=== PATIENT | female | born 1960 | race African-American/Black ===

== ENCOUNTER 2017-10-21 12:16 | Inpatient (IN) | payer OTHER, MEDICAID ==
[~2017-10-21] VITALS: Ht 152.4 cm; Wt 36.3 kg
--- NOTE | 2017-10-21 12:18 | NUR ---
PATIENT TAKEN TO ER BED VIA EMS
--- NOTE | 2017-10-21 12:25 | NUR ---
PT BIBA FROM SCHOOL FOR GT DISLODGEMENT. NO BLEEDING OR DRAINNG NOTED, BALLOON STILL INFLATED NOTED EXTEROR TO ABDOMEN. TEACHER AT BEDSIDE. STATES SHE WAS GOING TO FEED PT FIBERSOURCE VIA GTUBE WHEN SHE NOTED IT WAS DISLODGED. PT NON VERBAL, SOCKS NOTED TO JULIA HANDS TO AVOID BITING. BOTH SOAKED IN WHAT APPEARS TO BE PATIENTS SALIVA. PT PULLING OWN TONGUE, PER TEACHER, THIS IS NORMAL BEHAVIOR FOR PT. PT WHEELCHAIR BOUND, INCONTNINENT. RESP EVEN AND UNLABORED, ON RA@99%. ABD SOFT, NT TO TOUCH. NO CRYING OR FACIAL BRIMACING NOTED, ONLY UNINTELLIGLE SOUNDS AT TIMES. MED HX: AUTISM MEDS:UNKNOWN
--- NOTE | 2017-10-21 13:04 | NUR ---
DR. PIZARRO BEDSIDE
[2017-10-21] MEDS ORDERED: MORPHINE SULFATE 2 MG/ML SYR IVP PRN (13:45)
[2017-10-21] MEDS ORDERED: MORPHINE SULFATE 4 MG/ML SYR IVP PRN (13:45)
[2017-10-21] MEDS: DEXT 5% /NACL 0.9% 1,000 ML IV SCH ×2 (13:45→23:45)
[2017-10-21] MEDS ORDERED: ONDANSETRON 4 MG/2 ML VIAL IVP PRN (13:45)
--- NOTE | 2017-10-21 15:08 | NUR ---
NO ACUTE CHNAGES IN CONDITON, VSS PRIVATE CAREGIVER AT BEDSIDE. IN NAD.
--- NOTE | 2017-10-21 15:30 | NUR ---
PATIENT LYING IN BED, MOVING AROUND. NO DISTRESS NOTED. FLACC 0. CONDITION UNCHANGED. SAFETY MEASURES IN PLACE, CALL LIGHT WITHIN REACH. WILL CONTINUE TO MONITOR . Addendum: 10/21/17 at 1951 by Ranulfo Peterson RN DISREGARD NOTE, WRONG TIME.
--- NOTE | 2017-10-21 15:33 | NUR ---
Patient will be admitted to care of DR . Admited to M/S. Will go to room. Belongings list completed. Report to [BLADE ADAMS.
[2017-10-21 15:45] VITALS: BP 119/64
--- NOTE | 2017-10-21 15:45 | NUR ---
PATIENT ARRIVED ON MST UNIT FROM ER VIA BED/GURNEY. PATIENT IN STABLE CONDITION. PATIENT IS BEDBOUND, UNABLE TO AMBULATE. PATIENT'S CAREGIVER IS WITH PATIENT AND IS PROVIDING INFORMATION REGARDING PATIENT'S MEDICAL HISTORY. ER NURSE UNABLE TO START AN IV ON PATIENT DUE TO PATIENT MOVING AROUND TOO MUCH. WILL NOTIFY . AAOX1, AGITATED MOOD. SKIN IS INTACT, SKIN COLOR APPROPRIATE TO ETHNICITY, WARM TO TOUCH. HAS CONTRACTURES ON B/L UE AND LE. ABDOMEN SOFT, NON-DISTENDED. GTUBE SITE STOMA ON LEFT UPPER ABD HAS SKIN GRANULOMA. LUNGS CTA ON ALL LOBES. SAFETY MEASURES IN PLACE, FALL PREVENTION IN PLACE, CALL LIGHT WITHIN REACH. WILL CONTINUE TO MONITOR.
--- NOTE | 2017-10-21 16:30 | NUR ---
PATIENT LYING IN BED, MOVING AROUND. NO DISTRESS NOTED. FLACC 0. CONDITION UNCHANGED. SAFETY MEASURES IN PLACE, CALL LIGHT WITHIN REACH. WILL CONTINUE TO MONITOR .
--- NOTE | 2017-10-21 17:30 | NUR ---
DR. EUGENE AT BEDSIDE REVIEWING PLAN OF CARE WITH PATIENT. WILL CONTINUE TO MONITOR.
[2017-10-21] MEDS ORDERED: LORazepam 2 MG/ML VIAL IM/IVP PRN (17:50)
--- NOTE | 2017-10-21 18:00 | NUR ---
ASSISTED SLOT SHIFT MANAGER IN CLEANING PATIENT AND REPOSITIONING PATIENT. NO DISTRESS NOTED. FLACC 0. SAFETY MEASURES IN PLACE, CALL LIGHT WITHIN REACH. WILL CONTINUE TO MONITOR.
--- NOTE | 2017-10-21 19:25 | NUR ---
GAVE REPORT TO CAD OPERATOR NURSE FOR CONTINUITY OF CARE. PATIENT IN STABLE CONDITION.
--- NOTE | 2017-10-21 19:26 | NUR ---
RECD. IN BED, AWAKE, A/OX1, APHASIC. RESPIRATION EVEN AND UNLABORED. NO IV LINE, WILL INSERT A NEW IV LINE. KEEP ON MOVING IN BED, GT SITE CLEAN AND DRY, NO NOTED DRAINAGE, APPEARS LIKE A CLOSED HOLE. WITH MITTENS ON, KEEP ON PUTTING HANDS INSIDE MOUTH. REORIENTED TO HOSPITAL SETTING. UNABLE TO COMPREHEND. BILATERAL LOWER EXTREMITIES CONTRACTED. SAFETY MEASURES ENFORCED. BED ON ALARM. NO APPEARANCE OF PAIN NOTED 0/10.
--- NOTE | 2017-10-21 19:30 | NUR ---
Patient's Plan of Care was discussed and reviewed with INSURANCE COORDINATOR: ALTAGRACIA
--- NOTE | 2017-10-21 20:30 | NUR ---
REQUESTED HAND TENNIS BALL COVERER TO HAVE ICU NURSE PUT A NEW IV LINE, CHARGE NURSE MADDISON TRIED BEFORE BEGINNING OF SHIFT BUT UNABLE TO FIND A LINE.
--- NOTE | 2017-10-21 22:00 | NUR ---
BED ALARM, TRYING TO GET OUT OF BED, NO DISTRESS NOTED.
[2017-10-21] MEDS ORDERED: LORazepam 2 MG/ML VIAL ONE (22:54)
--- NOTE | 2017-10-21 22:59 | NUR ---
WITH RESTLESSNESS, MEDICATED WITH ATIVAN 1 MG. IM ORDERED.
--- NOTE | 2017-10-21 23:55 | NUR ---
NO RESTLESSNESS NOTED, SLEEPING COMFORTABLY IN BED.
[2017-10-22] VITALS: BP 129/48
--- NOTE | 2017-10-22 | NUR ---
ICU NURSE LEAH TRIED TO INSERT IV AT THE ARMS AND FOOT BUT UNABLE TO FIND A LINE, PATIENT IS HARD STICK.
--- NOTE | 2017-10-22 02:00 | NUR ---
ER NURSE TRIED SIX TIMES BUT UNABLE TO GET AN IV LINE.
--- NOTE | 2017-10-22 02:45 | NUR ---
PAGED DR. George EUGENE TO INFORM UNABLE TO FIND AN IV LINE.
--- NOTE | 2017-10-22 07:10 | NUR ---
RECEIVED PATIENT REPORT AT BEDSIDE. PATIENT ASLEEP BUT AROUSABLE. NO S/S OF DISTRESS NOTED. PATIENT ON ROOM AIR. NO SOB. G-TUBE SITE OPEN TO AIR. NO DRAINAGE NOTED. NO IV LINE IN PLACE. BED LOWERED WITH CALL LIGHT WITHIN REACH. WILL CONTINUE TO MONITOR
--- NOTE | 2017-10-22 07:25 | NUR ---
CONDITION REMAIN STABLE, WILL ENDORSE TO ANGIE JOYCE FOR CONTINUITY OF CARE.
[2017-10-22 07:39] LABS: HEMATOCRIT 45.5 % (36-48); HEMOGLOBIN 14.9 g/dL (12.0-16.0); MEAN CORPUSCULAR HEMOGLOBIN 31 pg (27-31); MEAN CORPUSCULAR HGB CONC 33 g/dL (33-37); MEAN CORPUSCULAR VOLUME 94 fL (80-94); PLATELET COUNT (AUTO) 160 K/uL (140-450); RED BLOOD CELL COUNT(AUTO) 4.83 MIL/uL (4.20-5.40); RED CELL DISTRIBUTION WIDTH 13.2 % (11.6-13.7); WHITE BLOOD COUNT (AUTO) 4.6 K/uL (4.8-10.8)
[2017-10-22 08:00] VITALS: BP 108/41
--- NOTE | 2017-10-22 08:30 | NUR ---
MADE DR EUGENE AWARE OF PATIENT'S HEART RATE. PATIENT NO S/S OF DISTRESS NOTED. PATIENT IS AROUSABLE. ORDERS RECEIVED. WILL CONTINUE TO MONITOR
[2017-10-22 08:54] LABS: ANION GAP 13.3 (8-16); CARBON DIOXIDE 29.4 mmol/L (21-32); CREATININE 0.7 mg/dL (0.6-1.3); POTASSIUM 4.7 mmol/L (3.5-5.1)
--- NOTE | 2017-10-22 09:00 | NUR ---
PATIENT HAS BEEN SCREENED AND CATEGORIZED HIGH NUTRITION RISK. PATIENT WILL BE SEEN WITHIN 1-2 DAYS OF ADMISSION. 10/21/17-10/22/[address]
[2017-10-22] MEDS: DEXT 5% /NACL 0.9% 1,000 ML IV SCH (09:45)
[2017-10-22 10:07] LABS: EOSINOPHILS % (MANUAL) 5 % (0-4); LYMPHOCYTES % (MANUAL) 42 % (20-46); MONOCYTES % (MANUAL) 3 % (5-12)
[2017-10-22] MEDS ORDERED: MORPHINE SULFATE 2 MG/ML SYR IM SCH (10:41)
--- NOTE | 2017-10-22 11:00 | NUR ---
PEG PLACEMENT PERFORMED BY DR ASHBY AT BEDSIDE. PATIENT TOLERATED WELL
[2017-10-22 12:00] VITALS: BP 98/58
--- NOTE | 2017-10-22 14:10 | NUR ---
SPOKE TO MICHAEL, MUD GRINDER OF [facility] AND [facility] AND INFORMED HER THAT A DISCHARGE ORDER HAS BEEN PLACED ALREADY. PER MICHAEL, PT TO BE PICKED UP AT 1600
--- NOTE | 2017-10-22 15:40 | NUR ---
PATIENT DISCHARGED BACK TO BOARD AND CARE. DISCHARGE INSTRUCTIONS GIVEN. PATIENT'S CARE PROVIDER. VERBALIZED UNDERSTANDING. PATIENT LEFT WITH ALL HER DISCHARGE PAPERS AND BELONGINGS. PATIENT LEFT IN STABLE CONDITION
== END 2017-10-22 15:40 | DRG 394 ==
LOC: MED 12:16 → MTU 13:48
PROVIDERS: ADMIT Preventive Medicine Preventive Medicine/Occupational Environmental Medicine; ATTEND Preventive Medicine Preventive Medicine/Occupational Environmental Medicine
PROC: 0D20XUZ Change Feeding Device in Upper Intestinal Tract, External Approach (ICD-10-PCS; principal; 2017-10-22)
PROC: 0DJ08ZZ Inspection of Upper Intestinal Tract, Via Natural or Artificial Opening Endoscopic (ICD-10-PCS; 2017-10-22)
DX: Z43.1 Encounter for attention to gastrostomy (principal); F84.0 Autistic disorder; F72 Severe intellectual disabilities; R13.10 Dysphagia, unspecified; Z88.0 Allergy status to penicillin; Z88.8 Allergy status to other drugs, medicaments and biological substances
CPT/HCPCS: 36415; 71045; 74241; 80048; 85025; 87081; 93005; 99285; J2060; J2270; Q0092

== ENCOUNTER 2021-12-18 21:39 | Emergency (ER) | payer OTHER, MEDICAID ==
[~2021-12-18] VITALS: Ht 160 cm; Wt 45.4 kg
[~2021-12-18 21:39] MED LIST: ATRN INH; BISA-246 RC; CRAN450C GT; DOCU-299 GT; ESOM40EC GT; FERR75LI22 GT; LACT10CA GT; LACT10SO93 GT; MAGN400S60 GT; METO5SOL19 GT; MIRABULK GT; MULT15LI1 GT; ONDA4TAB GT; ROC1PM IV; TAMS0.4C96 GT; [UNRECOGNIZED DRUG - CODE] GT
--- NOTE | 2021-12-18 21:55 | NUR ---
DANIELLE SORIA VIA GURNEY TO BED 07.
[2021-12-18 21:57] VITALS: BP 118/68
--- NOTE | 2021-12-18 22:20 | NUR ---
Note undone in ED - 12/18/21 at 233 by NADEGE .61 YO F SANDEE FROM [facility]. PT HAS BEEN VOMITING X 1 WEEK. GCS NORMALLY 10 , NOW IT IS 5. PT IS RESTLESS AND CONTRACTED. PT UNABLE TO SPEAK. SKIN IS PINK/WARM/DRY AND INTACT PT UNABE TO AMBULATE; LUNGS CLEAR BL; HR EVEN AND REGULAR; PATIENT POSITIONED FOR COMFORT; HOB ELEVATED; BEDRAILS UP X2 WITH SEIZURE PADS ; BED DOWN. ER MADE AWARE OF PT STATUS. Addendum: 12/18/21 at 2333 by NADEGE Amendment undone in [facility] - 12/18/21 at 233 by NADEGE .61 YO F SANDEE FROM [facility]. PT HAS BEEN VOMITING X 1 WEEK. GCS NORMALLY 10 , NOW IT IS 5. PT IS RESTLESS AND CONTRACTED. PT UNABLE TO SPEAK. SKIN IS PINK/WARM/DRY AND INTACT PT UNABE TO AMBULATE; LUNGS CLEAR BL; HR EVEN AND REGULAR; PATIENT POSITIONED FOR COMFORT; HOB ELEVATED; BEDRAILS UP X2 WITH SEIZURE PADS ; BED DOWN. ER MD MADE AWARE OF PT STATUS. PMH:SPASTIC QUAD, CP, INTELLECTUALLY DISABLED, INCONTINENT ALLERGIES:PENECILLINS , HEPARIN
--- NOTE | 2021-12-18 23:05 | NUR ---
NEW BRIEF AND ROBERTO CARE PERFORMED. SEIZUE PADS PUT ON TO PROTECT HER HEAD. PT IS CONTRACTED AND HARD TO MOVE.
[2021-12-18] MEDS ORDERED: ONDANSETRON 4 MG/2 ML VIAL IVP ONE (23:35)
[2021-12-18] MEDS ORDERED: NACL 0.9% 1,000 ML IV ONE (23:35)
[2021-12-19] MEDS ORDERED: LORazepam 2 MG/ML VIAL IM ONE
[2021-12-19 00:06] LABS: BASOPHILS % (AUTO) 0.4 % (0.0-2.0); EOSINOPHILS # (AUTO) 0.1 K/uL (0-0.4); EOSINOPHILS % (AUTO) 1.1 % (0.0-4.0); HEMATOCRIT 39.4 % (36-48); HEMOGLOBIN 12.9 g/dL (12.0-16.0); LYMPHOCYTES # (AUTO) 1.9 K/uL (2.5-16.5); LYMPHOCYTES % (AUTO) 28.9 % (20.5-51.1); MEAN CORPUSCULAR HEMOGLOBIN 29 pg (27-31); MEAN CORPUSCULAR HGB CONC 33 g/dL (33-37); MEAN CORPUSCULAR VOLUME 89.2 fL (80-94); MONOCYTES # (AUTO) 0.8 K/uL (0.8-1.0); MONOCYTES % (AUTO) 12.8 % (1.7-9.3); NEUTROPHILS # (AUTO) 3.7 K/uL (1.8-7.7); NEUTROPHILS % (AUTO) 56.8 % (42.2-75.2); PLATELET COUNT (AUTO) 201 K/uL (140-450); RED BLOOD CELL COUNT(AUTO) 4.41 MIL/uL (4.20-5.40); RED CELL DISTRIBUTION WIDTH 15.1 % (11.6-13.7); WHITE BLOOD COUNT (AUTO) 6.5 K/uL (4.8-10.8)
[2021-12-19 00:36] LABS: ALBUMIN 2.8 g/dL (3.4-5.0); ANION GAP 10.9 (8-16); CARBON DIOXIDE 31.6 mmol/L (21-32); CREATININE 0.9 mg/dL (0.6-1.3); POTASSIUM 3.5 mmol/L (3.5-5.1); TOTAL BILIRUBIN 0.3 mg/dL (0.0-1.0)
--- NOTE | 2021-12-19 01:04 | NUR ---
PT TAKEN TO CT VIA W/C. Addendum: 12/19/21 at 0104 by MEDEB PT TAKEN TO CT VIA
--- NOTE | 2021-12-19 01:14 | NUR ---
PT BROUGHT BACK FROM CT VIA [facility].
--- NOTE | 2021-12-19 01:30 | NUR ---
DANIELLE JHAVERI. URINE COLLECTED AND WALKED TO LAB GIVEN TO BOLA
--- NOTE | 2021-12-19 01:46 | NUR ---
PT TEMP DROPPPING . PROVIDED TWO EXTRA BLANKETS FOR WARMTH AND COMFORT
[2021-12-19 01:49] LABS: APPEARANCE,URINE CLEAR (CLEAR); BILIRUBIN,URINE 1+ (NEGATIVE); BLOOD, URINE 3+ (NEGATIVE); COLOR,URINE YELLOW (YELLOW); LEUKOCYTE ESTERASE ,URINE 3+ (NEGATIVE); NITRITE, URINE NEGATIVE (NEGATIVE); PH,URINE 8.5 (5.0-9.0); UGLUCOSE NEGATIVE (NEGATIVE)
[2021-12-19 01:55] LABS: RBC,URINE 0-5 /HPF (0-5); WBC,URINE TOO MANY TO COUNT /HPF (0-5)
[2021-12-19] MEDS ORDERED: SULFAMETH/TRIMETH DS 800/160MG 1 TAB GT ONE (02:05)
--- NOTE | 2021-12-19 03:09 | NUR ---
PT TRANSFER KNITTER CALLED TO CLARIFY WHERE G TUBE MED GOES. ASPIRATE AND FEEDINGS IN JEJEUNEM AND MEDS IN STOMACH
[2021-12-19] MEDS ORDERED: ONDANSETRON 4 MG/2 ML VIAL ONE (04:08)
[2021-12-19] MEDS ORDERED: NITROGLYCERIN 0.4 MG TAB SL ONE (04:10)
--- NOTE | 2021-12-19 04:35 | NUR ---
Patient appears to be resting comfortably in bed. Vital Signs within normal limits. Respirations even and unlabored.
[2021-12-19] MEDS ORDERED: LEVOFLOXACIN 750 MG/D5W PREMIX 150 ML IV ONE (05:00)
[2021-12-19] MEDS ORDERED: LEVO-315 PO (05:01)
[2021-12-19] MEDS ORDERED: ONDA-188 PO (05:01)
[2021-12-19] MEDS ORDERED: SULF-59 PO (05:01)
--- NOTE | 2021-12-19 07:20 | NUR ---
Report and continuation of care received from VERNA Espinoza.
--- NOTE | 2021-12-19 07:20 | NUR ---
Pt report given to ANGIE KELLEY. Transfer of care at this time.
--- NOTE | 2021-12-19 07:31 | NUR ---
Spoke with Vicki Calderon / caregiver @ who states she will contact [place] to schedule transportation pickup. No ETA provided at this time.
--- NOTE | 2021-12-19 08:48 | NUR ---
Patient resting in semi-fowlers position with seizure pads in place. IVF 0.9% NS running at 100mL/hr. No respiratory distress noted; pt non-verbal with eyes open tracking. VSS; RR even/unlabored. Bed locked in lowest position, side rails x 2.
--- NOTE | 2021-12-19 09:08 | NUR ---
Recontacted Vicki via telephone who states scheduled pickup time from [facility] is [phone]. Vicki will recontact with any updated earlier ETA.
--- NOTE | 2021-12-19 10:39 | NUR ---
Pt resting in semi-fowlers position laying on R side. Seizure pads in place. VSS. Respirations even/unlabored. Bed locked in lowest position, side rails x 2.
--- NOTE | 2021-12-19 10:42 | NUR ---
Contacted Vicki who states no new ETA provided by [facility] [employer]. ETA remains [phone].
--- NOTE | 2021-12-19 12:07 | NUR ---
Patient appears to be resting comfortably in bed with both eyes closed. Vital Signs within normal limits. Respirations even and unlabored. Bed locked in lowest position, side rails x 2.
--- NOTE | 2021-12-19 14:03 | NUR ---
Contacted [facility] who states no new ETA provided by [facility], states she will attempt to contact transportation and obtain an updated ETA.
--- NOTE | 2021-12-19 14:10 | NUR ---
[facility] at [facility]
--- NOTE | 2021-12-19 14:17 | NUR ---
IV removed, catheter intact and site benign. Applied folded 2x2 gauze and tape to stop bleeding.
--- NOTE | 2021-12-19 14:18 | NUR ---
Patient discharged with v/s stable. Written and verbal after care instructions given and explained, provided to transportation crew for staff. Patient non-verbal; Carried onto [facility] and transported to long-term. All questions addressed prior to discharge. ID band removed. Patient advised to follow up with PMD. Rx of Zofran, Levofloxacin, Bactrim Ds Tablet given. Pt caregiver educated on indication of medication including possible reaction and side effects. Opportunity to ask questions provided and answered.
[2021-12-19 14:19] VITALS: BP 140/81
== END 2021-12-19 14:18 ==
LOC: MED 21:39
DX: J69.8 Pneumonitis due to inhalation of other solids and liquids (principal); N39.0 Urinary tract infection, site not specified; R11.2 Nausea with vomiting, unspecified; R94.31 Abnormal electrocardiogram [ECG] [EKG]
CPT/HCPCS: 36415; 71250; 74176; 80053; 81001; 83690; 85025; 87086; 93005; 96361; 96365; 96372; 96375; 99285; J1956; J2060; J2405; J7030

== ENCOUNTER 2022-05-17 10:03 | Emergency (ER) | payer OTHER, MEDICAID ==
[~2022-05-17] VITALS: Ht 157.5 cm; Wt 45.4 kg
[~2022-05-17 10:03] MED LIST changes: +LEVO-315 PO; +ONDA-188 PO; +SULF-59 PO
--- NOTE | 2022-05-17 10:06 | NUR ---
PATIENT BIBA TO BED 11.
[2022-05-17 10:20] VITALS: BP 110/70
[2022-05-17] MEDS ORDERED: ONDANSETRON 4 MG/2 ML VIAL IVP ONE (10:25)
--- NOTE | 2022-05-17 10:30 | NUR ---
lab at bedside
--- NOTE | 2022-05-17 10:30 | NUR ---
62 y/o female biba from [facility] B&C for nv x last night. Per EMS facility nurse reported pt was "diaphoretic" and had "abdominal pain". Upon assessment pain not evident during abdominal assessment and palpation. Noted with green emesis on night gown and green colored stool. GT in place with abdominal binder, no residuals. Pt is nonverbal, a/o x0 is baseline, GSC 9. ALL: PCN, Heparin PMH: GT placement, Cerebral Palsy, Spastic Quadriplegia, Profound Intellectual Disability.
[2022-05-17 10:46] LABS: BASOPHILS % (AUTO) 0.3 % (0.0-2.0); EOSINOPHILS # (AUTO) 0.1 K/uL (0-0.4); EOSINOPHILS % (AUTO) 1.6 % (0.0-4.0); HEMATOCRIT 38.2 % (36-48); HEMOGLOBIN 12.4 g/dL (12.0-16.0); LYMPHOCYTES # (AUTO) 1.3 K/uL (2.5-16.5); LYMPHOCYTES % (AUTO) 14.5 % (20.5-51.1); MEAN CORPUSCULAR HEMOGLOBIN 30 pg (27-31); MEAN CORPUSCULAR HGB CONC 33 g/dL (33-37); MEAN CORPUSCULAR VOLUME 92.8 fL (80-94); MONOCYTES # (AUTO) 0.7 K/uL (0.8-1.0); MONOCYTES % (AUTO) 7.3 % (1.7-9.3); NEUTROPHILS # (AUTO) 6.8 K/uL (1.8-7.7); NEUTROPHILS % (AUTO) 76.3 % (42.2-75.2); PLATELET COUNT (AUTO) 321 K/uL (140-450); RED BLOOD CELL COUNT(AUTO) 4.11 MIL/uL (4.20-5.40); RED CELL DISTRIBUTION WIDTH 16.4 % (11.6-13.7); WHITE BLOOD COUNT (AUTO) 8.9 K/uL (4.8-10.8)
[2022-05-17 11:04] LABS: ALBUMIN 2.7 g/dL (3.4-5.0); ANION GAP 12.1 (8-16); CARBON DIOXIDE 28.6 mmol/L (21-32); CREATININE 0.8 mg/dL (0.6-1.3); POTASSIUM 3.7 mmol/L (3.5-5.1); TOTAL BILIRUBIN 0.3 mg/dL (0.0-1.0)
--- NOTE | 2022-05-17 11:23 | NUR ---
Dr Ponce at bedside for ultrasound guided IV, 20g to left AC established.
--- NOTE | 2022-05-17 14:43 | NUR ---
PT IN RESTING IN BED WITH EYES OPEN. NO VISIBLE DISTRESS OBSERVED, BREATHING PATTERN AND EFFORT NORMAL. BED IN LOW, BILATERAL SIDE RAILS UP.
[2022-05-17] MEDS ORDERED: NACL 0.9% 1,000 ML IV ONE (15:00)
[2022-05-17 15:24] LABS: BILIRUBIN,URINE NEGATIVE (NEGATIVE); BLOOD, URINE TRACE-I (NEGATIVE); COLOR,URINE YELLOW (YELLOW); LEUKOCYTE ESTERASE ,URINE 1+ (NEGATIVE); NITRITE, URINE NEGATIVE (NEGATIVE); UGLUCOSE NEGATIVE (NEGATIVE)
[2022-05-17 15:32] LABS: APPEARANCE,URINE HAZY (CLEAR)
[2022-05-17 15:38] LABS: RBC,URINE 0-5 /HPF (0-5); WBC,URINE 20-60 /HPF (0-5)
[2022-05-17 15:39] LABS: YEAST,URINE Few /HPF (None Seen)
--- NOTE | 2022-05-17 15:50 | NUR ---
PHONE CALL PLACED TO [facility], SPOKE WITH KINA, CHARGE NURSE, WHO WILL ARRANGE TRANSPORT. WILL CALL BACK WITH KIRSTIN. CONTACT # [phone]
[2022-05-17] MEDS ORDERED: cefTRIAXone 1,000 MG VIAL ONE (15:54)
[2022-05-17] MEDS ORDERED: NITR100C7 PO (16:05)
[2022-05-17] MEDS ORDERED: FLUC150T PO (16:28)
--- NOTE | 2022-05-17 17:11 | NUR ---
PHONE CALL PLACED TO ASIM AT [facility] AT [phone], INFORMING OF PT DISCHARGE. PER ASIM SHE IS UNABLE TO ARRANGE TRANSPORT.
--- NOTE | 2022-05-17 17:20 | NUR ---
PHONE CALL RECEIVED FROM ASIM AT [facility] WHO STATES PT REQUIRES "HIGHER LEVEL OF CARE AND CANNOT BE ACCEPTED BACK". ASIM REQUESTING PT BE DISCHARGED TO SNF AT THIS TIME. INFORMED ASIM PT IS MEDICALLY CLEARED AND IS READY FOR TRANSPORT BACK TO FACILITY. PER ASIM SHE WILL CONTACT SIGN POSTER AND FACILITY FUNERAL ARRANGER FOR FURTHER INSTRUCTIONS.
--- NOTE | 2022-05-17 17:57 | NUR ---
PHONE CALL RECEIVED FROM CONSTANTIN, SUPER[employer]OR [employer] AT [facility]. SHE WILL ARRANGE FOR TRANSPORT THROUGH [facility] AND CALL BACK WITH [facility]. CONTACT # FOR CONSTANTIN [phone]
--- NOTE | 2022-05-17 18:16 | NUR ---
CALL RECEIVED FROM MELANIE WITH [facility], ETA 19:30-20:30
--- NOTE | 2022-05-17 19:21 | NUR ---
Pt report given to ANGIE Tracy. Transfer of care at this time.
[2022-05-17 19:59] VITALS: BP 126/76
--- NOTE | 2022-05-17 20:06 | NUR ---
Patient discharged with v/s stable. Written and verbal after care instructions given and explained. Patient alert, oriented and verbalized understanding of instructions. Ambulance Transport with to retirement. All questions addressed prior to discharge. ID band removed. Patient advised to follow up with PMD. Rx of macrobid 100mg capsule given. Patient educated on indication of medication including possible reaction and side effects. Opportunity to ask questions provided and answered. vss.
== END 2022-05-17 20:06 | disposition home or self-care (01) ==
LOC: MED 10:03
DX: N39.0 Urinary tract infection, site not specified (principal); E86.0 Dehydration; Z88.0 Allergy status to penicillin; Z88.8 Allergy status to other drugs, medicaments and biological substances
CPT/HCPCS: 36415; 80053; 81001; 83690; 83735; 85025; 87086; 96361; 96365; 96375; 99285; J0696; J2405; J7030

== ENCOUNTER 2022-11-20 09:54 | Inpatient (IN) | payer OTHER, MEDICAID ==
[~2022-11-20] VITALS: Ht 165.1 cm; Wt 45.4 kg
[~2022-11-20 09:54] MED LIST changes: +FLUC150T PO; -LEVO-315 PO; +LEVO-481 PO; +NITR100C7 PO; +[UNRECOGNIZED DRUG - CODE] GT; -[UNRECOGNIZED DRUG - CODE] GT
--- NOTE | 2022-11-20 09:56 | NUR ---
BIBA TO BED 9
[2022-11-20 10:01] VITALS: BP 132/80
[2022-11-20] MEDS ORDERED: NACL 0.9% 2,000 ML IV SCH (10:25)
--- NOTE | 2022-11-20 10:30 | NUR ---
62/F BIBA FROM [facility] WEAK NOTICED BY STAFF TODAY AT 0700. EMS REPORTS PATIENT'S HEARTRATE WAS ELEVATED UPON ARRIVAL. PER EMS, PT AT BASELINE AAOX0 BUT APPEARS MORE LETHARGIC THAN USUAL. PT TACHY OF 130 AND AXILLARY TEMP OF 101.4 AT TRIAGE. ON ROOM AIR, SATTING 96%. ON RN MED SURG, ON GOWN. PMH: SEPSIS, CEREBRAL PALSY
[2022-11-20] MEDS ORDERED: FERR-20 GT (10:34)
[2022-11-20] MEDS ORDERED: ASCO500T95 GT (10:34)
[2022-11-20] MEDS ORDERED: FAMO-92 GT (10:34)
--- NOTE | 2022-11-20 10:42 | NUR ---
BLOOD DRAWN AND SENT TO LAB. EKG DONE AT BEDSIDE. XR TAKEN AT BEDSIDE
[2022-11-20 10:49] LABS: BASOPHILS # (AUTO) 0.1 K/uL (0.00-0.22); BASOPHILS % (AUTO) 0.8 % (0.0-2.0); EOSINOPHILS % (AUTO) 0.3 % (0.0-4.0); HEMATOCRIT 46.8 % (36-48); HEMOGLOBIN 14.8 g/dL (12.0-16.0); LYMPHOCYTES # (AUTO) 1.1 K/uL (2.5-16.5); LYMPHOCYTES % (AUTO) 9.6 % (20.5-51.1); MEAN CORPUSCULAR HEMOGLOBIN 31 pg (27-31); MEAN CORPUSCULAR HGB CONC 32 g/dL (33-37); MEAN CORPUSCULAR VOLUME 97.1 fL (80-94); MONOCYTES # (AUTO) 1.3 K/uL (0.8-1.0); MONOCYTES % (AUTO) 10.7 % (1.7-9.3); NEUTROPHILS # (AUTO) 9.3 K/uL (1.8-7.7); NEUTROPHILS % (AUTO) 78.6 % (42.2-75.2); PLATELET COUNT (AUTO) 298 K/uL (140-450); RED BLOOD CELL COUNT(AUTO) 4.82 MIL/uL (4.20-5.40); WHITE BLOOD COUNT (AUTO) 11.8 K/uL (4.8-10.8)
[2022-11-20] MEDS ORDERED: LEVOFLOXACIN 750 MG/D5W PREMIX 150 ML IV ONE (11:20)
--- NOTE | 2022-11-20 11:28 | NUR ---
URINE COLLECTED VIA STRAIGHT CATH WITHOUT COMPLICATION. URINE SENT TO LAB
[2022-11-20 11:40] LABS: ALBUMIN 3.1 g/dL (3.4-5.0); ANION GAP 17.7 (8-16); CARBON DIOXIDE 24.7 mmol/L (21-32); CREATININE 1.2 mg/dL (0.6-1.3); POTASSIUM 4.4 mmol/L (3.5-5.1); TOTAL BILIRUBIN 0.3 mg/dL (0.0-1.0)
[2022-11-20 12:22] LABS: APPEARANCE,URINE CLEAR (CLEAR); BILIRUBIN,URINE NEGATIVE (NEGATIVE); BLOOD, URINE TRACE-I (NEGATIVE); COLOR,URINE YELLOW (YELLOW); LEUKOCYTE ESTERASE ,URINE SMALL (NEGATIVE); NITRITE, URINE POSITIVE (NEGATIVE); PH,URINE 6.5 (5.0-9.0); UGLUCOSE NEGATIVE (NEGATIVE)
[2022-11-20] MEDS ORDERED: MAG SULF 2000 MG/WATER PREMIX 50 ML IV PRN (13:35)
[2022-11-20] MEDS ORDERED: NACL 0.9% 1,000 ML IV SCH (13:35)
[2022-11-20] MEDS ORDERED: MAGNESIUM HYDROXIDE 2400 MG/30 ML UDC GT PRN (13:35)
[2022-11-20] MEDS ORDERED: POTASSIUM CHLORIDE 20% 40 MEQ/15 ML UDC PO PRN (13:35)
[2022-11-20] MEDS ORDERED: IPRATROPIUM 0.02% 0.5 MG/2.5 ML NEBU INH PRN (13:35)
[2022-11-20] MEDS ORDERED: bisacodyL 10 MG SUPP RC PRN (13:35)
[2022-11-20] MEDS ORDERED: HYDROcodone/APAP 7.5/325 MG 1 TAB PO PRN (13:35)
[2022-11-20] MEDS ORDERED: ONDANSETRON 4 MG/2 ML VIAL IVP PRN (13:35)
[2022-11-20] MEDS ORDERED: ACETAMINOPHEN 650 MG GT SCH (13:35)
[2022-11-20] MEDS ORDERED: ONDANSETRON 4 MG ODT PO PRN (13:35)
[2022-11-20] MEDS ORDERED: ACETAMINOPHEN 325 MG TAB PO PRN (13:35)
[2022-11-20] MEDS ORDERED: ONDANSETRON 4 MG TAB GT SCH (13:35)
--- NOTE | 2022-11-20 14:25 | NUR ---
Patient will be admitted to care of JACQUELYN. Admited to TELE. Will go to room 122A. Belongings list completed. Report to TERRANCE ADAMS.
[2022-11-20 14:56] LABS: ANION GAP 13.6 (8-16); CARBON DIOXIDE 24.9 mmol/L (21-32); CREATININE 0.9 mg/dL (0.6-1.3); POTASSIUM 4.5 mmol/L (3.5-5.1)
[2022-11-20 15:14] LABS: CHOL/HDL RATIO 3.6 (1-4.5); FREE T4 (FREE THYROXINE) 0.98 ng/dL (0.76-1.46); PHOSPHORUS 2.6 mg/dL (2.5-4.9); THYROID STIMULATING HORMONE 1.29 uIU/mL (0.34-3.74)
[2022-11-20 15:26] LABS: PROTHROMBIN TIME 10.9 secs (10.8-13.4)
[2022-11-20 16:00] VITALS: BP 114/73
--- NOTE | 2022-11-20 16:02 | NUR ---
PATIENT HAS BEEN SCREENED AND CATEGORIZED HIGH NUTRITION RISK. PATIENT WILL BE SEEN WITHIN 1-2 DAYS OF ADMISSION. REVIEWED BY ILIANA GRIMES RD
[2022-11-20] MEDS: METOCLOPRAMIDE 10 MG/10 ML SYRP UDC GT SCH (16:37)
[2022-11-20 20:00] VITALS: BP 118/61
--- NOTE | 2022-11-20 20:07 | NUR ---
PATIENT AWAKE NON VERBAL ON ROOM AIR. NO S/S OF RESPIRATORY DISTRESS. RESPIRATION EVEN UNLABORED. TUBE FEEDING JEVITY 1.2 RUNNING 40 ML/HR TOLERATING WELL. NO RESIDUAL NOTED. PATIENT IS CONTRACTED TO BOTH UPPER AND LOWER EXTREMITIES. IV ACCESS ON THE RIGHT EJ 22 GAUGE SALINE LOCK. SAFETY PRECAUTIONS ARE IN PLACE. CALL LIGHT WITHIN REACH.
[2022-11-20] MEDS: DOCUSATE 100 MG/10 ML UDC PO SCH (20:08)
--- NOTE | 2022-11-20 20:08 | NUR ---
ADMINISTERED SCHEDULED DUE MEDICATIONS.
[2022-11-20] MEDS ORDERED: DOCUSATE SODIUM 100 MG GELCAP PO SCH (21:00)
[2022-11-20 22:26] LABS: ANION GAP 12.8 (8-16); CARBON DIOXIDE 27.2 mmol/L (21-32); CREATININE 0.9 mg/dL (0.6-1.3)
--- NOTE | 2022-11-20 22:29 | NUR ---
RECEIVED A CALL FROM LAB REPORTING CRITICAL LAB VALUE SODIUM 157. NOTIFIED DR. VALLADARES AT 3413 WITH NEW ORDERS NOTED, CARRIED OUT.
[2022-11-20] MEDS: NACL 0.45% 1,000 ML IV SCH (22:40)
[2022-11-21] VITALS: BP 114/65
[2022-11-21 04:00] VITALS: BP 111/68
--- NOTE | 2022-11-21 07:17 | NUR ---
BEDSIDE REPORT GIVEN TO DAY SHIFT NURSE PORFIRIO FOR CONTINUITY OF CARE.
[2022-11-21 07:22] LABS: BASOPHILS % (AUTO) 0.3 % (0.0-2.0); EOSINOPHILS # (AUTO) 0.1 K/uL (0-0.4); EOSINOPHILS % (AUTO) 0.9 % (0.0-4.0); HEMATOCRIT 36.7 % (36-48); HEMOGLOBIN 11.6 g/dL (12.0-16.0); LYMPHOCYTES # (AUTO) 1.6 K/uL (2.5-16.5); MEAN CORPUSCULAR HEMOGLOBIN 31 pg (27-31); MEAN CORPUSCULAR HGB CONC 32 g/dL (33-37); MONOCYTES # (AUTO) 0.7 K/uL (0.8-1.0); MONOCYTES % (AUTO) 8.6 % (1.7-9.3); NEUTROPHILS # (AUTO) 5.5 K/uL (1.8-7.7); NEUTROPHILS % (AUTO) 70.2 % (42.2-75.2); PLATELET COUNT (AUTO) 219 K/uL (140-450); RED BLOOD CELL COUNT(AUTO) 3.78 MIL/uL (4.20-5.40); RED CELL DISTRIBUTION WIDTH 16.1 % (11.6-13.7); WHITE BLOOD COUNT (AUTO) 7.8 K/uL (4.8-10.8)
--- NOTE | 2022-11-21 07:37 | NUR ---
11/21/2022 0737: RECEIVED REPORT FROM AUGUSTINA ADAMS. PT RESTING IN BED. NO GUARDING OR GRIMACING N. NO ACUTE DISTRESS NOTED AT THIS TIME. [id number].
[2022-11-21 08:00] VITALS: BP 110/67
[2022-11-21 08:05] LABS: ANION GAP 11.8 (8-16); CREATININE 0.7 mg/dL (0.6-1.3); POTASSIUM 3.8 mmol/L (3.5-5.1)
[2022-11-21 08:15] LABS: MAGNESIUM 1.9 mg/dL (1.8-2.4); PHOSPHORUS 3.2 mg/dL (2.5-4.9)
[2022-11-21] MEDS ORDERED: NON-FORMULARY ITEM (Famotidine* (Pepcid*) 40 MG) GT SCH (09:00)
[2022-11-21] MEDS: POLYETHYLENE GLYCOL 17 GM/PKT GT SCH (09:17)
[2022-11-21] MEDS: TAMSULOSIN 0.4 MG CAP GT SCH (09:17)
[2022-11-21] MEDS: LACTOBACILLUS RHAMNOSUS GG 1 EACH CAP GT SCH (09:17)
[2022-11-21] MEDS: DOCUSATE 100 MG/10 ML UDC PO SCH ×2 (09:19→20:21)
[2022-11-21] MEDS: ASCORBIC ACID 500 MG/5 ML ORASYR GT SCH (09:19)
[2022-11-21] MEDS: PANTOPRAZOLE 40 MG INJ VIAL IVP SCH (09:19)
[2022-11-21] MEDS: METOCLOPRAMIDE 10 MG/10 ML SYRP UDC GT SCH ×3 (09:19→17:00)
[2022-11-21] MEDS: FERROUS SULFATE 300 MG/5 ML UDC PO SCH (09:20)
[2022-11-21 12:00] VITALS: BP 111/71
--- NOTE | 2022-11-21 15:20 | NUR ---
DC PLANNING ASSESSMENT COMPLETE SEE ASSESSMENT FOR DETAILS CLEVE REPORTS TENTATIVE DC PLAN IS FOR PT TO RETURN TO [facility], ONCE MEDICALLY STABLE. Addendum: 11/21/22 at 1521 by Giorgio ZABALA Amended: Links added.
[2022-11-21] MEDS ORDERED: DEXTROSE 50% 50 ML SYR IVP PRN (15:30)
[2022-11-21 16:00] VITALS: BP 111/71
--- NOTE | 2022-11-21 16:26 | NUR ---
11/21/22 RD INITIAL ASSESSMENT COMPLETED PLEASE REFER TO NUTRITION ASSESSMENT UNDER CARE ACTIVITY FOR ESTIMATED NUTRITIONAL NEEDS. 1. RECOMMEND SWITCHING TF FORMULA TO GLUCERNA 1.2 D/T PT WITH HYPERGLYCEMIA @ GOAL RATE OF 60 ML/HR, FWF 250 ML Q4 PER MD - PROVIDES 1440 ML TOTAL VOLUME, 1728 KCAL, 86 GM PROTEIN AND 2159 ML FREE WATER DAILY MEETING 100% ESTIMATED KCAL AND PROTEIN NEEDS; ADEQUATE - START TF AT 2O ML/HR INCREASE BY 2O ML Q4H UNTIL GOAL IS REACHED TOLERATED 2. MONITOR GI SYMPTOMS, GASTRIC RESIDUALS AND NUTRITION RELATED LAB VALUES 3. CONSULT RD PRN 4. RD TO FOLLOW-UP 2-3 DAYS, HIGH RISK REVIEWED BY ILIANA GRIMES RD
[2022-11-21] MEDS: BLOOD GLUCOSE MONITORING 1 DEV DEV FS SCH ×2 (16:30→20:20)
[2022-11-21] MEDS: INSULIN LISPRO SLIDING SCALE 100 UNITS/ML VIAL SUBQ PRN (17:34)
[2022-11-21] MEDS: NACL 0.45% 1,000 ML IV SCH (18:40)
--- NOTE | 2022-11-21 19:25 | NUR ---
RECEIVED PATIENT SLEEPING ON ROOM AIR. NO S/S OF RESPIRATORY DISTRESS. BREATHING NORMAL WITH SYMMETRICAL RISE AND FALL OF THE CHEST. IVF 1/2 NS INFUSING AT 50 ML/HR IN THE LEFT EJ. TUBE FEEDING JEVITY 1.2 RUNNING 40 ML/HR TOLERATING WELL. NO RESIDUAL NOTED. INCREASED FEEDING TO 50 ML/HR. SAFETY MEASURES IN PLACE. BED WHEELS LOCKED. PATIENT IS CONTRACTED AND NON VERBAL.
[2022-11-21 20:00] VITALS: BP 107/64
--- NOTE | 2022-11-21 20:21 | NUR ---
DUE MEDICATION GIVEN
[2022-11-22] VITALS: BP 108/65
[2022-11-22 04:00] VITALS: BP 136/70
[2022-11-22] MEDS: BLOOD GLUCOSE MONITORING 1 DEV DEV FS SCH ×4 (06:39→20:15)
--- NOTE | 2022-11-22 06:39 | NUR ---
CHECKED BLOOD SUGAR WAS 172, HUMALOG INSULIN ADMINISTERED ORDERED PER SLIDING SCALE.
[2022-11-22] MEDS: INSULIN LISPRO SLIDING SCALE 100 UNITS/ML VIAL SUBQ PRN (06:40)
--- NOTE | 2022-11-22 07:27 | NUR ---
ENDORSED PATIENT TO AM SHIFT NURSE FOR CONTINUITY OF CARE.
--- NOTE | 2022-11-22 07:30 | NUR ---
RECEIVED PATIENT FROM FOOD SAFETY COORDINATOR NURSE FOR CONTINUITY OF CARE. PT IS AOX0. ON ROOM AIR. NO S/S OF RESPIRATORY DISTRESS. BREATHING NORMAL WITH SYMMETRICAL RISE AND FALL OF THE CHEST. IV 18G ON LEFT EJ. IVF 1/2 NS INFUSING AT 50 ML/HR. TUBE FEEDING JEVITY 1.2 RUNNING 50 ML/HR TOLERATING WELL. FLACC 0. PLAN OF CARE DISCUSSED. SAFETY MEASURES IN PLACE. BED WHEELS LOCKED. CALL LIGHT WITHIN REACH.
[2022-11-22 08:00] VITALS: BP 104/64
[2022-11-22] MEDS ORDERED: LEVOFLOXACIN 750 MG/D5W PREMIX 150 ML IV SCH ×2 (08:10→08:20)
[2022-11-22] MEDS: METOCLOPRAMIDE 10 MG/10 ML SYRP UDC GT SCH ×3 (08:54→16:45)
[2022-11-22] MEDS: PANTOPRAZOLE 40 MG INJ VIAL IVP SCH (08:54)
[2022-11-22] MEDS: POLYETHYLENE GLYCOL 17 GM/PKT GT SCH (08:54)
[2022-11-22] MEDS: FERROUS SULFATE 300 MG/5 ML UDC PO SCH (08:57)
[2022-11-22] MEDS: TAMSULOSIN 0.4 MG CAP GT SCH (08:57)
[2022-11-22] MEDS: LACTOBACILLUS RHAMNOSUS GG 1 EACH CAP GT SCH (08:57)
[2022-11-22] MEDS: ASCORBIC ACID 500 MG/5 ML ORASYR GT SCH (08:57)
[2022-11-22] MEDS: DOCUSATE 100 MG/10 ML UDC PO SCH ×2 (08:57→20:15)
--- NOTE | 2022-11-22 09:30 | NUR ---
ALL SCHEDULED MEDS GIVEN. PT IS STABLE. NO DISTRESS NOTED. WILL CONTINUE TO MONITOR.
[2022-11-22 12:00] VITALS: BP 99/62
--- NOTE | 2022-11-22 12:17 | NUR ---
BS CHECK WAS 82. DID NOT ADMINISTER INSULIN.
[2022-11-22] MEDS: NACL 0.45% 1,000 ML IV SCH (15:15)
[2022-11-22 16:00] VITALS: BP 120/57
--- NOTE | 2022-11-22 16:53 | NUR ---
BS CHECK WAS 109. DID NOT ADMINISTER 109
--- NOTE | 2022-11-22 19:18 | NUR ---
ENDORSED TO HOT WIRE GLASS TUBE CUTTER NURSE FOR CONTINUITY OF CARE. PT IS STABLE.
--- NOTE | 2022-11-22 19:19 | NUR ---
RECEIVED REPORT FROM MORNING SHIFT NURSE. PT IS AOX1, BEDBOUND AND BLIND. PT IS ON ROOM AIR AND ON G-TUBE RUNNING WITH GLUCERNA 1.2 RUNNING AT 60ML/HR WITH WATER FLUSH OF 250ML/HR EVERY 4 HRS. PT HAS IV ON LEFT WRIST GAUGE 22 RUNNING WITH .45 NS AT 50ML/HR. PT SKIN IS INTACT. ALL SAFETY MEASURES IMPLEMENTED. BED IN LOW POSITION, BED WHEELS ON LOCK AND CALL LIGHT WITHIN REACH.
[2022-11-22 20:00] VITALS: BP 105/54
--- NOTE | 2022-11-22 20:15 | NUR ---
SCHEDULED AND PRESCRIBED MEDICATION WAS GIVEN TO PT PER MD ORDER. PT BLOOD GLUCOSE IS 116. NO NEED FOR INSULIN COVERAGE. ALL SAFETY MEASURES IMPLEMENTED. BED IN LOW POSITION, BED WHEELS ON LOCK AND CALL LIGHT WITHIN REACH.
[2022-11-23] VITALS: BP 121/87
--- NOTE | 2022-11-23 | NUR ---
PT IS SLEEPING. CHEST RISE AND FALL SYMMETRICALLY NOTED. RESPIRATION IS EVEN AND UNLABORED. ALL SAFETY MEASURES IMPLEMENTED. BED IN LOW POSITION, BED WHEELS ON LOCK, BED IN LOW POSITION AND CALL LIGHT WITHIN REACH.
--- NOTE | 2022-11-23 02:00 | NUR ---
HANG NEW G-TUBE FEEDING, GLUCERNA 1.2 RUNNING AT 60ML/HR WITH WATER FLUSH OF 250ML/HR EVERY 4 HRS. ALL SAFETY MEASURES IMPLEMENTED. BED IN LOW POSITION, BED WHEELS ON LOCK, BED IN LOW POSITION AND CALL LIGHT WITHIN REACH.
--- NOTE | 2022-11-23 04:00 | NUR ---
MORNING CARE WAS DONE TO PT. CHANGED CHUCKS, LINENS AND GOWN. ALL SAFETY MEASURES IMPLEMENTED. BED IN LOW POSITION, BED WHEELS ON LOCK, BED IN LOW POSITION AND CALL LIGHT WITHIN REACH.
[2022-11-23 04:02] VITALS: BP 118/65
[2022-11-23] MEDS: BLOOD GLUCOSE MONITORING 1 DEV DEV FS SCH ×4 (06:31→20:09)
--- NOTE | 2022-11-23 06:31 | NUR ---
PT BLOOD GLUCOSE IS 121. NO INSULIN COVERAGE NEEDED.
--- NOTE | 2022-11-23 07:14 | NUR ---
PT IS STABLE. ENDORSED PT TO MORNING SHIFT NURSE FOR CONTINUITY OF CARE.
[2022-11-23 08:00] VITALS: BP 122/71
[2022-11-23] MEDS: LACTOBACILLUS RHAMNOSUS GG 1 EACH CAP GT SCH (10:08)
[2022-11-23] MEDS: PANTOPRAZOLE 40 MG INJ VIAL IVP SCH (10:09)
[2022-11-23] MEDS: TAMSULOSIN 0.4 MG CAP GT SCH (10:10)
[2022-11-23] MEDS: ASCORBIC ACID 500 MG/5 ML ORASYR GT SCH (10:10)
[2022-11-23] MEDS: POLYETHYLENE GLYCOL 17 GM/PKT GT SCH (10:11)
[2022-11-23] MEDS: DOCUSATE 100 MG/10 ML UDC PO SCH ×2 (10:11→20:03)
[2022-11-23] MEDS: FERROUS SULFATE 300 MG/5 ML UDC PO SCH (10:12)
[2022-11-23] MEDS: METOCLOPRAMIDE 10 MG/10 ML SYRP UDC GT SCH ×3 (10:12→17:05)
[2022-11-23] MEDS: NACL 0.45% 1,000 ML IV SCH (10:50)
[2022-11-23 12:00] VITALS: BP 104/51
[2022-11-23 16:00] VITALS: BP 102/61
[2022-11-23 16:00] LABS: BASOPHILS # (AUTO) 0.1 K/uL (0.00-0.22); BASOPHILS % (AUTO) 0.8 % (0.0-2.0); EOSINOPHILS # (AUTO) 0.1 K/uL (0-0.4); EOSINOPHILS % (AUTO) 0.9 % (0.0-4.0); HEMATOCRIT 39.4 % (36-48); HEMOGLOBIN 13.2 g/dL (12.0-16.0); LYMPHOCYTES # (AUTO) 2.4 K/uL (2.5-16.5); LYMPHOCYTES % (AUTO) 15.8 % (20.5-51.1); MEAN CORPUSCULAR HEMOGLOBIN 31 pg (27-31); MEAN CORPUSCULAR HGB CONC 33 g/dL (33-37); MEAN CORPUSCULAR VOLUME 93.3 fL (80-94); MONOCYTES # (AUTO) 0.4 K/uL (0.8-1.0); MONOCYTES % (AUTO) 2.4 % (1.7-9.3); NEUTROPHILS # (AUTO) 12.2 K/uL (1.8-7.7); NEUTROPHILS % (AUTO) 80.1 % (42.2-75.2); PLATELET COUNT (AUTO) 209 K/uL (140-450); RED BLOOD CELL COUNT(AUTO) 4.23 MIL/uL (4.20-5.40); RED CELL DISTRIBUTION WIDTH 14.5 % (11.6-13.7); WHITE BLOOD COUNT (AUTO) 15.3 K/uL (4.8-10.8)
[2022-11-23 16:19] LABS: CHLORIDE 106 mmol/L (98-107); SODIUM SERUM 136 mmol/L (136-145)
[2022-11-23 16:20] LABS: CARBON DIOXIDE 14.7 mmol/L (21-32); GLUCOSE 133 mg/dL (74-106); UREA NITROGEN, BLOOD 16 mg/dL (7-18)
[2022-11-23 16:22] LABS: CREATININE 0.6 mg/dL (0.6-1.3); GFR ARICAN-AMERICAN 130 mL/min (>90)
--- NOTE | 2022-11-23 19:07 | NUR ---
ENDORSE PATIENT IN STABLE CONDITION TO PM SHIFT NURSE WHILE PIV 1/2NS INFUSING VIA L.WRIST 22G @50ML/HR. TUBE FEEDING RUNNING AT 60ML/HR W/ 150ML WATER FLUSH Q4HRS.
[2022-11-23 20:00] VITALS: BP 98/54
--- NOTE | 2022-11-23 20:03 | NUR ---
SCHEDULED AND PRESCRIBED MEDICATION WAS GIVEN TO PT PER MD ORDER. ALL SAFETY MEASURES IMPLEMENTED. BED IN LOW POSITION, BED WHEELS ON LOCK AND CALL LIGHT WITHIN REACH.
--- NOTE | 2022-11-23 20:09 | NUR ---
PT BLOOD GLUCOSE IS 143. NO INSULIN COVERAGE NEEDED TO PT.
--- NOTE | 2022-11-23 22:00 | NUR ---
WARM BLANKET WAS GIVEN TO PT. NO S/S OF RESPIRATORY DISTRESS NOTED. ALL SAFETY MEASURES IMPLEMENTED. BED IN LOW POSITION, BED WHEELS ON LOCK AND CALL LIGHT WITHIN REACH.
[2022-11-24] VITALS: BP 114/74
--- NOTE | 2022-11-24 | NUR ---
PT IS SLEEPING. CHEST RISE AND FALL SYMMETRICALLY NOTED. RESPIRATION IS EVEN AND UNLABORED. ALL SAFETY MEASURES IMPLEMENTED. BED IN LOW POSITION, BED WHEELS ON LOCK AND CALL LIGHT WITHIN REACH.
--- NOTE | 2022-11-24 02:00 | NUR ---
CHECKED PT STILL SLEEPING. CHEST RISE AND FALL SYMMETRICALLY NOTED. RESPIRATION IS EVEN AND UNLABORED. ALL SAFETY MEASURES IMPLEMENTED. BED IN LOW POSITION, BED WHEELS ON LOCK AND CALL LIGHT WITHIN REACH.
[2022-11-24 04:00] VITALS: BP 106/59
--- NOTE | 2022-11-24 04:00 | NUR ---
MORNING CARE WAS DONE TO PT. CHANGED PT'S CHUCKS, LINENS AND GOWN. NO S/S OF RESPIRATORY DISTRESS NOTED. ALL SAFETY MEASURES IMPLEMENTED. BED IN LOW POSITION, BED WHEELS ON LOCK AND CALL LIGHT WITHIN REACH.
[2022-11-24 06:23] LABS: BASOPHILS % (AUTO) 0.5 % (0.0-2.0); EOSINOPHILS # (AUTO) 0.1 K/uL (0-0.4); EOSINOPHILS % (AUTO) 1.8 % (0.0-4.0); HEMATOCRIT 36.4 % (36-48); LYMPHOCYTES # (AUTO) 1.1 K/uL (2.5-16.5); LYMPHOCYTES % (AUTO) 20.7 % (20.5-51.1); MEAN CORPUSCULAR HEMOGLOBIN 31 pg (27-31); MEAN CORPUSCULAR HGB CONC 33 g/dL (33-37); MEAN CORPUSCULAR VOLUME 93.3 fL (80-94); MONOCYTES # (AUTO) 0.4 K/uL (0.8-1.0); MONOCYTES % (AUTO) 6.6 % (1.7-9.3); NEUTROPHILS # (AUTO) 3.9 K/uL (1.8-7.7); NEUTROPHILS % (AUTO) 70.4 % (42.2-75.2); PLATELET COUNT (AUTO) 204 K/uL (140-450); WHITE BLOOD COUNT (AUTO) 5.5 K/uL (4.8-10.8)
[2022-11-24 06:39] LABS: ANION GAP 10.7 (8-16); CARBON DIOXIDE 29.4 mmol/L (21-32); CREATININE 0.7 mg/dL (0.6-1.3); POTASSIUM 4.1 mmol/L (3.5-5.1)
[2022-11-24] MEDS: NACL 0.45% 1,000 ML IV SCH (06:41)
[2022-11-24 06:43] LABS: PHOSPHORUS 4.2 mg/dL (2.5-4.9)
[2022-11-24] MEDS: BLOOD GLUCOSE MONITORING 1 DEV DEV FS SCH ×4 (06:43→20:59)
--- NOTE | 2022-11-24 06:43 | NUR ---
PT BLOOD GLUCOSE IS 134. NO INSULIN COVERAGE NEEDED.
--- NOTE | 2022-11-24 07:01 | NUR ---
PT IS STABLE. ENDORSED PT TO MORNING SHIFT NURSE FOR CONTINUITY OF CARE.
[2022-11-24 08:00] VITALS: BP 99/59
--- NOTE | 2022-11-24 09:35 | NUR ---
PT. WITH LOW NATANAEL SCALE AT MODERATE TO HIGH RISK, CONTINUE TO FOLLOW PRESSURE INJURY PREVENTION INTERVENTIONS. -POSITIONING: TURN AND REPOSITION PATIENT Q 2H OR SOONER USE PILLOWS TO KEEP BONY PROMINENCES FROM DIRECT CONTACT WITH SURFACES USE REPOSITIONING WEDGES TO PROVIDE 30-DEGREE ANGLE FOR SIDE LYING POSITIONS OFFLOADING OR FOAM DRESSING TO ALL TUBING TO PREVENT MEDICAL DEVICES RELATED PRESSURE INJURY -RE-EVALUATING AND MANAGING INCONTINENCE MONITOR SKIN CONDITION DURING POSITION CHANGE DO NOT MASSAGE REDNESS, BONY PROMINENCES FREQUENT ROBERTO-CARE AND PROVIDE BARRIER CREAMS PRN IF SOILING MOISTURE CONTROL BY OFFER BED GONZALEZ/URINAL /ABSORBENT PAD TO WICK AND HOLD MOISTURE KEEP SKIN DRY AND PROTECT FROM FRICTION -MANAGE FRICTION/SHEAR/MOBILITY KEEP HOB AT THE LOWEST LEVEL OF ELEVATION NO MORE THAN 30 DEGREE UNLESS OTHERWISE CONTRAINDICATED USE LIFT SHEET OR TRANSFER DEVICE TO MOVE PATIENT AND PREVENT LATERAL SHEER. PROTECT HEELS, ELBOWS BONY PROMINENCES WITH SKIN BERRIES OR FOAM DRESSING IF EXPOSED TO FRICTION OFFLOAD BILATERAL HEELS BY PLACING PILLOWS UNDER CALVES AT ALL TIMES, UNLESS OTHERWISE CONTRAINDICATED -PRESSURE REDISTRIBUTION SURFACE THERAPY CHEPE ISOFLEX MATTRESS -NUTRITION: PLEASE FOLLOW RD RECOMMENDATIONS AND OFFER NUTRITION SUPPLEMENTS IF ORDERED. PLEASE CONTACT WOUND CARE NURSE FOR ANY QUESTION AND CHANGE OF WOUND CONDITION.
[2022-11-24] MEDS: LEVOFLOXACIN 750 MG/D5W PREMIX 150 ML IV SCH (10:09)
[2022-11-24] MEDS: POLYETHYLENE GLYCOL 17 GM/PKT GT SCH (10:11)
[2022-11-24] MEDS: METOCLOPRAMIDE 10 MG/10 ML SYRP UDC GT SCH ×3 (10:12→17:04)
[2022-11-24] MEDS: DOCUSATE 100 MG/10 ML UDC PO SCH ×2 (10:12→21:00)
[2022-11-24] MEDS: LACTOBACILLUS RHAMNOSUS GG 1 EACH CAP GT SCH (10:13)
[2022-11-24] MEDS: FERROUS SULFATE 300 MG/5 ML UDC PO SCH (10:13)
[2022-11-24] MEDS: ASCORBIC ACID 500 MG/5 ML ORASYR GT SCH (10:13)
[2022-11-24] MEDS: TAMSULOSIN 0.4 MG CAP GT SCH (10:14)
[2022-11-24] MEDS: PANTOPRAZOLE 40 MG INJ VIAL IVP SCH (10:14)
--- NOTE | 2022-11-24 11:45 | NUR ---
RECEIVE CALL FROM CONSTANTIN Hernández WHO WORKS FOR PATIENT'S CUSTODIAL FOR UPDATE PATIENT'S STATUS REGARDING TO ADMIT DIAGNOSIS. TREATMENT PLAN. WILL CONTINUE TO MONITOR.
[2022-11-24 12:00] VITALS: BP 99/81
[2022-11-24] MEDS ORDERED: DEXTROSE 5% 1,000 ML IV SCH (12:50)
--- NOTE | 2022-11-24 14:24 | NUR ---
11/24/22 RD FOLLOW UP COMPLETED PLEASE REFER TO NUTRITION ASSESSMENT UNDER CARE ACTIVITY FOR ESTIMATED NUTRITIONAL NEEDS. 1. CONTINUE GLUCERNA 1.2 @ 60 ML/HR, FWF 250 ML Q4 PER MD - PROVIDES 1440 ML TOTAL VOLUME, 1728 KCAL, 86 GM PROTEIN AND 2159 ML FREE WATER DAILY MEETING 100% ESTIMATED KCAL AND PROTEIN NEEDS; ADEQUATE 2. MONITOR GI SYMPTOMS, GASTRIC RESIDUALS AND NUTRITION RELATED LAB VALUES 3. CONSULT RD PRN 4. RD TO FOLLOW-UP 7 DAYS, LOW RISK REVIEWED BY ILIANA GRIMES RD
[2022-11-24 16:00] VITALS: BP 117/62
--- NOTE | 2022-11-24 19:13 | NUR ---
ENDORSE PATIENT IN STABLE CONDITION TO PM SHIFT NURSE WHILE D5 @40ML/HR INFUSING VIA L.WRIST 22G SITE. TUBE FEED GLUCERNA INFUSING @60ML/HR W/ FREE WATER FLUSHING [id number] DUE TO MORE THAN 50ML RESIDUAL
--- NOTE | 2022-11-24 19:15 | NUR ---
RECEIVED PT FROM AM NURSE FOR CONTINUITY NOF CARE.PT IS STABLE
[2022-11-24 20:00] VITALS: BP 123/62
[2022-11-25] VITALS: BP 115/60
--- NOTE | 2022-11-25 | NUR ---
PATIENT ASLEEP, NO DISTRESS NOTED
[2022-11-25 04:00] VITALS: BP 107/62
--- NOTE | 2022-11-25 04:00 | NUR ---
CLEANED AND REPOSITIONED , TOLERATED WELL, NO SOB NOTED
[2022-11-25] MEDS: BLOOD GLUCOSE MONITORING 1 DEV DEV FS SCH ×4 (06:31→21:43)
[2022-11-25 06:57] LABS: BASOPHILS % (AUTO) 0.3 % (0.0-2.0); EOSINOPHILS # (AUTO) 0.1 K/uL (0-0.4); EOSINOPHILS % (AUTO) 1.7 % (0.0-4.0); HEMATOCRIT 36.8 % (36-48); LYMPHOCYTES # (AUTO) 1.1 K/uL (2.5-16.5); LYMPHOCYTES % (AUTO) 18.1 % (20.5-51.1); MEAN CORPUSCULAR HEMOGLOBIN 31 pg (27-31); MEAN CORPUSCULAR HGB CONC 33 g/dL (33-37); MEAN CORPUSCULAR VOLUME 93.8 fL (80-94); MONOCYTES # (AUTO) 0.5 K/uL (0.8-1.0); MONOCYTES % (AUTO) 7.9 % (1.7-9.3); NEUTROPHILS # (AUTO) 4.5 K/uL (1.8-7.7); PLATELET COUNT (AUTO) 197 K/uL (140-450); RED BLOOD CELL COUNT(AUTO) 3.93 MIL/uL (4.20-5.40); RED CELL DISTRIBUTION WIDTH 14.8 % (11.6-13.7); WHITE BLOOD COUNT (AUTO) 6.3 K/uL (4.8-10.8)
--- NOTE | 2022-11-25 07:02 | NUR ---
receive the table games shift manager rn in a stable condition [id number] cerebral palsy . admitting diagnosis of metabolic encephalopathy . will continue to monitor
[2022-11-25 07:16] LABS: ANION GAP 10.5 (8-16); CARBON DIOXIDE 30.7 mmol/L (21-32); CREATININE 0.8 mg/dL (0.6-1.3); POTASSIUM 4.2 mmol/L (3.5-5.1)
[2022-11-25 07:22] LABS: MAGNESIUM 2.1 mg/dL (1.8-2.4); PHOSPHORUS 3.8 mg/dL (2.5-4.9)
[2022-11-25 08:00] VITALS: BP 107/58
[2022-11-25] MEDS: DOCUSATE 100 MG/10 ML UDC PO SCH ×2 (09:20→21:38)
[2022-11-25] MEDS: LACTOBACILLUS RHAMNOSUS GG 1 EACH CAP GT SCH (09:21)
[2022-11-25] MEDS: PANTOPRAZOLE 40 MG INJ VIAL IVP SCH (09:21)
[2022-11-25] MEDS: FERROUS SULFATE 300 MG/5 ML UDC PO SCH (09:21)
[2022-11-25] MEDS: ASCORBIC ACID 500 MG/5 ML ORASYR GT SCH (09:21)
[2022-11-25] MEDS: METOCLOPRAMIDE 10 MG/10 ML SYRP UDC GT SCH ×3 (09:21→18:12)
[2022-11-25] MEDS: TAMSULOSIN 0.4 MG CAP GT SCH (09:21)
[2022-11-25] MEDS: POLYETHYLENE GLYCOL 17 GM/PKT GT SCH (09:22)
[2022-11-25] MEDS ORDERED: LEVO750T75 PO (10:26)
[2022-11-25] MEDS: INSULIN LISPRO SLIDING SCALE 100 UNITS/ML VIAL SUBQ PRN ×2 (11:47→18:10)
[2022-11-25 12:00] VITALS: BP 92/62
[2022-11-25 16:00] VITALS: BP 122/58
--- NOTE | 2022-11-25 18:41 | NUR ---
will endorse to machinist 2nd shift rn in a for continuity of care
--- NOTE | 2022-11-25 19:25 | NUR ---
RECD. REPORT FROM ANGIE SAMANIEGO. PATIENT RESTING IN BED, AWAKE, APHASIC, MENTALLY CHALLENGED. IV SALINE LOCK AT THE LEFT WRIST G22, PATENT AND INTACT. GT FEEDING OF GLUCERNA 1.2 INFUSING AT 60 ML/HR. INCONTINENT TO BM AND URINE. SAFETY MEASURES ENFORCED. NO APPEARANCE OF PAIN OR DISCOMFORT NOTED, FLACC -0.
[2022-11-25 20:00] VITALS: BP 126/80
--- NOTE | 2022-11-25 21:38 | NUR ---
SCHEDULED MEDICATION ADMINISTERED.
--- NOTE | 2022-11-25 22:00 | NUR ---
HAD A LARGE LOOSE BM. CLEANSED AND REPOSITIONED WITH PILLOWS FOR COMFORT.
[2022-11-26] VITALS: BP 146/66
--- NOTE | 2022-11-26 | NUR ---
RESTING IN BED COMFORTABLY. RESPIRATION EVEN AND UNLABORED.
--- NOTE | 2022-11-26 02:00 | NUR ---
CHECKED PATIENT, RESTING IN BED. NO DISCOMFORT OR DISTRESS NOTED.
[2022-11-26 04:00] VITALS: BP 136/61
--- NOTE | 2022-11-26 04:00 | NUR ---
STILL ON SINUS TACHYCARDIA ON TELE MONITORING, HR - 104. NO ABNORMAL RHYTHM NOTED.
--- NOTE | 2022-11-26 05:30 | NUR ---
HAVE ANOTHER BM, SMALL. CLEANSED AND REPOSITIONED IN BED WITH PILLOWS.
[2022-11-26] MEDS: BLOOD GLUCOSE MONITORING 1 DEV DEV FS SCH ×2 (05:51→12:14)
--- NOTE | 2022-11-26 06:50 | NUR ---
RESTING IN BED, RESPIRATION EVEN AND UNLABORED. SAFETY MAINTAINED DURING THE SHIFT. VS STABLE.
--- NOTE | 2022-11-26 07:20 | NUR ---
RECEIVED REPORT FROM RN AMBULATORY NURSE FOR CONTINUITY OF CARE. PT STABLE AT THIS TIME.
--- NOTE | 2022-11-26 07:30 | NUR ---
ENDORSED TO AM NURSE FOR CONTINUITY OF CARE.
[2022-11-26 08:00] VITALS: BP 120/74
[2022-11-26] MEDS: POLYETHYLENE GLYCOL 17 GM/PKT GT SCH (09:00)
[2022-11-26] MEDS: LACTOBACILLUS RHAMNOSUS GG 1 EACH CAP GT SCH (09:18)
[2022-11-26] MEDS: TAMSULOSIN 0.4 MG CAP GT SCH (09:18)
[2022-11-26] MEDS: PANTOPRAZOLE 40 MG INJ VIAL IVP SCH (09:18)
[2022-11-26] MEDS: METOCLOPRAMIDE 10 MG/10 ML SYRP UDC GT SCH (09:19)
[2022-11-26] MEDS: ASCORBIC ACID 500 MG/5 ML ORASYR GT SCH (09:19)
[2022-11-26] MEDS: LEVOFLOXACIN 750 MG/D5W PREMIX 150 ML IV SCH (09:20)
[2022-11-26] MEDS: DOCUSATE 100 MG/10 ML UDC PO SCH (09:20)
[2022-11-26] MEDS: FERROUS SULFATE 300 MG/5 ML UDC PO SCH (09:20)
[2022-11-26 09:48] LABS: BASOPHILS % (AUTO) 0.4 % (0.0-2.0); EOSINOPHILS # (AUTO) 0.1 K/uL (0-0.4); EOSINOPHILS % (AUTO) 0.8 % (0.0-4.0); HEMATOCRIT 40.9 % (36-48); HEMOGLOBIN 13.5 g/dL (12.0-16.0); LYMPHOCYTES # (AUTO) 1.4 K/uL (2.5-16.5); LYMPHOCYTES % (AUTO) 16.1 % (20.5-51.1); MEAN CORPUSCULAR HEMOGLOBIN 31 pg (27-31); MEAN CORPUSCULAR HGB CONC 33 g/dL (33-37); MEAN CORPUSCULAR VOLUME 94.5 fL (80-94); MONOCYTES # (AUTO) 0.7 K/uL (0.8-1.0); MONOCYTES % (AUTO) 8.2 % (1.7-9.3); NEUTROPHILS # (AUTO) 6.4 K/uL (1.8-7.7); NEUTROPHILS % (AUTO) 74.5 % (42.2-75.2); PLATELET COUNT (AUTO) 239 K/uL (140-450); RED BLOOD CELL COUNT(AUTO) 4.33 MIL/uL (4.20-5.40); RED CELL DISTRIBUTION WIDTH 15.4 % (11.6-13.7); WHITE BLOOD COUNT (AUTO) 8.6 K/uL (4.8-10.8)
[2022-11-26 10:04] LABS: ANION GAP 10.4 (8-16); CARBON DIOXIDE 34.3 mmol/L (21-32); CREATININE 0.7 mg/dL (0.6-1.3); POTASSIUM 4.7 mmol/L (3.5-5.1)
[2022-11-26] MEDS: INSULIN LISPRO SLIDING SCALE 100 UNITS/ML VIAL SUBQ PRN (12:15)
[2022-11-26 12:24] VITALS: BP 120/74
== END 2022-11-26 13:05 | DRG 871 ==
LOC: MED 09:54 → MTU 13:37
DX: A41.9 Sepsis, unspecified organism (principal); G93.41 Metabolic encephalopathy; J69.0 Pneumonitis due to inhalation of food and vomit; E87.0 Hyperosmolality and hypernatremia; J98.11 Atelectasis; N39.0 Urinary tract infection, site not specified; Z20.822 Contact with and (suspected) exposure to COVID-19; I48.91 Unspecified atrial fibrillation; E86.1 Hypovolemia; I44.4 Left anterior fascicular block; H54.7 Unspecified visual loss; G80.9 Cerebral palsy, unspecified; E86.0 Dehydration; Z88.0 Allergy status to penicillin; Z88.8 Allergy status to other drugs, medicaments and biological substances; Z93.1 Gastrostomy status
CPT/HCPCS: 36415; 71045; 80048; 80053; 81003; 82140; 82150; 82550; 82553; 82948; 83036; 83605; 83690; 83735; 83874; 83880; 84100; 84439; 84443; 84484; 85025; 85610; 85730; 87040; 87081; 87086; 93005; 96361; 96365; 99291; C9113; J1815; J1956; J8597

== ENCOUNTER 2022-11-26 23:07 | Inpatient (IN) | payer OTHER, MEDICAID ==
[~2022-11-26] VITALS: Ht 152.4 cm; Wt 49.9 kg
[~2022-11-26 23:07] MED LIST changes: +ASCO500T95 GT; +FAMO-92 GT; +FERR-20 GT; -FERR75LI22 GT; -FLUC150T PO; -LEVO-481 PO; +LEVO750T75 PO; -NITR100C7 PO; -ONDA-188 PO; -ROC1PM IV; -SULF-59 PO
[2022-11-26 23:08] VITALS: BP 100/60
--- NOTE | 2022-11-26 23:08 | NUR ---
Received patient via EMS ambulance from [facility] (name not given) w/ c/o fever, elevated temp and hr, and abnormal labs. patient h/o develop mentally delayed, non-verbal, and h/o sz, placed in bed #4. Introduced self to patient, positioned for comfort and safety w/ bed to low position sr up.
--- NOTE | 2022-11-26 23:09 | NUR ---
PT BROUGHT TO BED 3 VIA ESTELLA FAITH
[2022-11-26] MEDS ORDERED: NACL 0.9% 1,000 ML IV ONE (23:50)
[2022-11-27 00:30] LABS: BASOPHILS % (AUTO) 0.4 % (0.0-2.0); EOSINOPHILS # (AUTO) 0.1 K/uL (0-0.4); EOSINOPHILS % (AUTO) 1.1 % (0.0-4.0); HEMATOCRIT 38.2 % (36-48); HEMOGLOBIN 12.5 g/dL (12.0-16.0); LYMPHOCYTES # (AUTO) 1.1 K/uL (2.5-16.5); LYMPHOCYTES % (AUTO) 17.6 % (20.5-51.1); MEAN CORPUSCULAR HEMOGLOBIN 31 pg (27-31); MEAN CORPUSCULAR HGB CONC 33 g/dL (33-37); MEAN CORPUSCULAR VOLUME 93.8 fL (80-94); MONOCYTES # (AUTO) 0.8 K/uL (0.8-1.0); MONOCYTES % (AUTO) 11.6 % (1.7-9.3); NEUTROPHILS # (AUTO) 4.5 K/uL (1.8-7.7); NEUTROPHILS % (AUTO) 69.3 % (42.2-75.2); PLATELET COUNT (AUTO) 209 K/uL (140-450); RED BLOOD CELL COUNT(AUTO) 4.07 MIL/uL (4.20-5.40); RED CELL DISTRIBUTION WIDTH 15.4 % (11.6-13.7); WHITE BLOOD COUNT (AUTO) 6.5 K/uL (4.8-10.8)
--- NOTE | 2022-11-27 00:39 | NUR ---
patient started on iv bolus 0.9%NS at 500ml/hr. Iv site placed to left forearm, site patent and intact. Bed to low position sr up, continue to monitor.
[2022-11-27 00:50] LABS: ALBUMIN 2.8 g/dL (3.4-5.0); ANION GAP 11.7 (8-16); ASPARTATE AMINOTRANSFERASE 12 U/L (15-37); CHLORIDE 104 mmol/L (98-107); CREATININE 0.7 mg/dL (0.6-1.3); GFR ARICAN-AMERICAN 109 mL/min (>90); GLUCOSE 177 mg/dL (74-106); POTASSIUM 3.7 mmol/L (3.5-5.1); SODIUM SERUM 140 mmol/L (136-145); TOTAL BILIRUBIN 0.3 mg/dL (0.0-1.0); UREA NITROGEN, BLOOD 17 mg/dL (7-18)
--- NOTE | 2022-11-27 01:40 | NUR ---
UA obtained and sent to lab. Patient had x1 bm, patient cleaned, diaper placed then repositioned for comfort. Bed to low position sr up, continue to monitor.
--- NOTE | 2022-11-27 01:40 | NUR ---
# 8 FR Urinary catheter inserted utilizing sterile technique. Immediate return of 20 ml clear yellow urine noted. Urine sample collected and sent to lab. Pt tolerated procedure.
[2022-11-27 01:41] LABS: APPEARANCE,URINE SL CLOUDY (CLEAR); BILIRUBIN,URINE NEGATIVE (NEGATIVE); BLOOD, URINE TRACE-I (NEGATIVE); COLOR,URINE YELLOW (YELLOW); LEUKOCYTE ESTERASE ,URINE 2+ (NEGATIVE); NITRITE, URINE POSITIVE (NEGATIVE); PH,URINE 6.5 (5.0-9.0); UGLUCOSE NEGATIVE (NEGATIVE)
[2022-11-27 01:54] LABS: RBC,URINE 0-5 /HPF (0-5)
[2022-11-27] MEDS ORDERED: LEVOFLOXACIN 500 MG/D5W PREMIX 100 ML IV ONE (02:00)
--- NOTE | 2022-11-27 02:23 | NUR ---
patient started on iv abx levaquin 500mg ivpb, iv site patent and intact. will observe patient for any adverse reaction. Bed to low position sr up, continue to monitor.
--- NOTE | 2022-11-27 03:20 | NUR ---
Pt transferred to Med/Surg via GURNEYPatient will be admitted to care of MD Vela. Admited to med/surg. Will go to room 105A. Belongings list completed. Report to Neda ADAMS.
--- NOTE | 2022-11-27 03:35 | NUR ---
PT WAS ADMITTED TO [facility] FROM [facility] WITH DIAGNOSIS OF UTI. PT IS APHASIC AND BEDBOUND. PT HAS G-TUBE AND ON ROOM AIR. PT HAS IV ON LEFT FOREARM ON GAUGE 22, SALINE LOCK. PT HAS A LEFT EYE BLINDNESS. PT SKIN IS INTACT. NO S/S OF RESPIRATORY DISTRESS NOTED. ALL SAFETY MEASURES IMPLEMENTED. BED IN LOW POSITION, BED WHEELS ON LOCKED, BED IN LOW POSITION, BED ALARM IS ON AND CALL LIGHT WITHIN REACH.
--- NOTE | 2022-11-27 05:02 | NUR ---
NOTIFIED DR. VALLADARES REGARDING PT'S G-TUBE FEEDING AND CODE STATUS. DR. VALLADARES ORDER FOR FULL CODE AND NO DIET/G-TUBE ORDER FOR NOW. ORDER WAS CARRIED OUT AND MADE.
--- NOTE | 2022-11-27 06:00 | NUR ---
PT IS SLEEPING. CHEST RISE AND FALL SYMMETRICALLY NOTED. RESPIRATION IS EVEN AND UNLABORED. ALL SAFETY MEASURES IMPLEMENTED. BED IN LOW POSITION, BED WHEELS ON LOCK AND CALL LIGHT WITHIN REACH.
--- NOTE | 2022-11-27 07:08 | NUR ---
PT IS STABLE. ENDORSED PT TO MORNING SHIFT NURSE FOR CONTINUITY OF CARE.
--- NOTE | 2022-11-27 07:10 | NUR ---
RECEIVED REPORT FROM NIGHT NURSE BERNA FOR CONTINUITY OF CARE. IVF SITE INTACT. G-TUBE STOMA INTACT, PENDING FEEDING AWAITING FOR MD. WILL FOLLOW UP. CALL LIGHT KEPT WITHIN REACH. CALL LIGHT KEPT WITHIN REACH. WILL CONTINUE TO MONITOR.
[2022-11-27 08:00] VITALS: BP 98/58
--- NOTE | 2022-11-27 08:00 | NUR ---
Patient's Plan of Care was discussed and reviewed with MANAGER USER EXPERIENCE:
--- NOTE | 2022-11-27 08:00 | NUR ---
Patient's Plan of Care was discussed and reviewed with VERNA: MARIE
--- NOTE | 2022-11-27 08:15 | NUR ---
MADE FOLLOW UP WITH DR. STUART REGARDING PT FEEDING. AWAITING FOR RESPONSE.
[2022-11-27] MEDS ORDERED: ACETAMINOPHEN 650 MG GT SCH (09:20)
[2022-11-27] MEDS ORDERED: ONDANSETRON 4 MG/2 ML VIAL IVP PRN (09:20)
[2022-11-27] MEDS ORDERED: MAGNESIUM HYDROXIDE 2400 MG/30 ML UDC GT PRN (09:20)
[2022-11-27] MEDS ORDERED: ACETAMINOPHEN 325 MG TAB PO PRN (09:20)
[2022-11-27] MEDS ORDERED: ONDANSETRON 4 MG TAB GT SCH (09:20)
[2022-11-27] MEDS ORDERED: HYDROcodone/APAP 7.5/325 MG 1 TAB GT PRN (09:20)
[2022-11-27] MEDS ORDERED: IPRATROPIUM 0.02% 0.5 MG/2.5 ML NEBU INH PRN (09:20)
[2022-11-27] MEDS ORDERED: bisacodyL 10 MG SUPP RC PRN (09:20)
--- NOTE | 2022-11-27 09:29 | NUR ---
PATIENT HAS BEEN SCREENED AND CATEGORIZED HIGH NUTRITION RISK. PATIENT WILL BE SEEN WITHIN 1-[address] RECEIVED FNS NUTRITION CONSULT FOR TUBE FEEDING ON 11/27/22 REVIEWED BY ILIANA GRIMES RD
[2022-11-27] MEDS ORDERED: ACETAMINOPHEN 650 MG/20.3 ML UDC GT PRN (09:30)
[2022-11-27] MEDS: NACL 0.9% 1,000 ML IV SCH (10:11)
[2022-11-27 10:37] LABS: BASOPHILS % (AUTO) 0.4 % (0.0-2.0); EOSINOPHILS # (AUTO) 0.1 K/uL (0-0.4); EOSINOPHILS % (AUTO) 1.8 % (0.0-4.0); HEMATOCRIT 38.4 % (36-48); HEMOGLOBIN 12.3 g/dL (12.0-16.0); LYMPHOCYTES # (AUTO) 1.3 K/uL (2.5-16.5); LYMPHOCYTES % (AUTO) 24.7 % (20.5-51.1); MEAN CORPUSCULAR HEMOGLOBIN 31 pg (27-31); MEAN CORPUSCULAR HGB CONC 32 g/dL (33-37); MEAN CORPUSCULAR VOLUME 95.1 fL (80-94); MONOCYTES # (AUTO) 0.9 K/uL (0.8-1.0); MONOCYTES % (AUTO) 17.8 % (1.7-9.3); NEUTROPHILS # (AUTO) 2.9 K/uL (1.8-7.7); NEUTROPHILS % (AUTO) 55.3 % (42.2-75.2); PLATELET COUNT (AUTO) 211 K/uL (140-450); RED BLOOD CELL COUNT(AUTO) 4.04 MIL/uL (4.20-5.40); RED CELL DISTRIBUTION WIDTH 15.4 % (11.6-13.7); WHITE BLOOD COUNT (AUTO) 5.2 K/uL (4.8-10.8)
[2022-11-27 10:51] LABS: ANION GAP 10.2 (8-16); CARBON DIOXIDE 30.2 mmol/L (21-32); CREATININE 0.8 mg/dL (0.6-1.3); POTASSIUM 4.4 mmol/L (3.5-5.1)
[2022-11-27 11:00] LABS: CHOL/HDL RATIO 3.1 (1-4.5); MAGNESIUM 1.9 mg/dL (1.8-2.4); PHOSPHORUS 3.7 mg/dL (2.5-4.9)
[2022-11-27 11:19] LABS: PROTHROMBIN TIME 10.9 secs (10.8-13.4)
--- NOTE | 2022-11-27 11:43 | NUR ---
RECEIVED CALLED FROM [facility] SPOKE TO CLEVE. QUESTIONS ANSWERED.
--- NOTE | 2022-11-27 12:02 | NUR ---
RECEIVED CALLED FROM [facility] SPOKE TO CONSTANTIN. QUESTIONS ANSWERED.
[2022-11-27] MEDS: METOCLOPRAMIDE 10 MG/10 ML SYRP UDC GT SCH ×2 (13:14→17:56)
--- NOTE | 2022-11-27 13:14 | NUR ---
RESIDUAL CHECK. ADMINISTERED SCHEDULED MEDICATIONS VIA G-TUBE. TOLERATING WELL.
--- NOTE | 2022-11-27 14:59 | NUR ---
PATIENT TRANSFER TO TELE. SINUS RHYTHM WITH BBB
--- NOTE | 2022-11-27 15:38 | NUR ---
11/27/22 RD INITIAL ASSESSMENT COMPLETED PLEASE REFER TO NUTRITION ASSESSMENT UNDER CARE ACTIVITY FOR ESTIMATED NUTRITIONAL NEEDS. 1. RECOMMEND INCREASING JEVITY 1.2 GOAL RATE TO 60 ML/HR, FWF 200 ML Q6 PER MD - PROVIDES 1440 ML TOTAL VOLUME, 1728 KCAL, 77 GM PROTEIN AND 1962 ML FREE WATER DAILY MEETING 100% ESTIMATED KCAL AND PROTEIN NEEDS; ADEQUATE - START TF AT 2O ML/HR INCREASE BY 2O ML Q4H UNTIL GOAL IS REACHED TOLERATED 2. MONITOR GI SYMPTOMS, GASTRIC RESIDUALS AND NUTRITION RELATED LAB VALUES 3. CONSULT RD PRN 4. RD TO FOLLOW-UP 2-3 DAYS, HIGH RISK REVIEWED BY ILIANA GRIMES RD
[2022-11-27 16:00] VITALS: BP 90/51
--- NOTE | 2022-11-27 17:56 | NUR ---
RESIDUAL CHECK. SCHEDULED MEDICATIONS GIVEN VIA G-TUBE. TOLERATING WELL.
--- NOTE | 2022-11-27 19:05 | NUR ---
BEDSIDE REPORT GIVEN TO NIGHT NURSE CHERRISE FOR CONTINUITY OF CARE. REMAINS STABLE.
--- NOTE | 2022-11-27 19:06 | NUR ---
RECEIVED PT FROM MORNING SHIFT NURSE. PT IS APHASIC, AND BEDBOUND. PT IS ON ROOM AIR AND WITH G-TUBE RUNNING WITH JEVITY 1.2 AT 50ML/HR WITH WATER FLUSH OF 200 EVERY 6 HRS. PT HAS IV ON LEFT FOREARM GAUGE 22 RUNNING WITH NS AT 50ML/HR. NO S/S OF RESPIRATORY DISTRESS NOTED. PT SKIN IS INTACT. ALL SAFETY MEASURES IMPLEMENTED. BED IN LOW POSITION, BED WHEELS ON LOCK AND CALL LIGHT WITHIN REACH.
[2022-11-27 20:00] VITALS: BP 98/58
[2022-11-27] MEDS: DOCUSATE 100 MG/10 ML UDC GT SCH (20:11)
[2022-11-27] MEDS: LACTULOSE 20 GM/30 ML UDC GT SCH (20:11)
--- NOTE | 2022-11-27 20:11 | NUR ---
ALL SCHEDULED AND PRESCRIBED MEDICATION WAS GIVEN TO PT PER MD ORDER. ALL SAFETY MEASURES IMPLEMENTED. BED IN LOW POSITION, BED WHEELS ON LOCK AND CALL LIGHT WITHIN REACH.
[2022-11-27] MEDS ORDERED: CRANBERRY FRUIT 250 MG GT SCH (21:00)
[2022-11-27] MEDS ORDERED: LACTULOSE 10 GM GT SCH (21:00)
[2022-11-27] MEDS ORDERED: DOCUSATE SODIUM 100 MG GELCAP PO SCH (21:00)
--- NOTE | 2022-11-27 22:00 | NUR ---
PT WAS GIVEN WARM BLANKET. NO S/S OF RESPIRATORY DISTRESS NOTED. ALL SAFETY MEASURES IMPLEMENTED. BED IN LOW POSITION, BED WHEELS ON LOCK AND CALL LIGHT WITHIN REACH.
[2022-11-28] VITALS: BP 94/53
--- NOTE | 2022-11-28 02:00 | NUR ---
CHECKED THE PT, STILL SLEEPING. CHEST RISE AND FALL SYMMETRICALLY NOTED. RESPIRATION IS EVEN AND UNLABORED. ALL SAFETY MEASURES IMPLEMENTED. BED IN LOW POSITION, BED WHEELS ON LOCK AND CALL LIGHT WITHIN REACH.
[2022-11-28] MEDS: LEVOFLOXACIN 500 MG/D5W PREMIX 100 ML IV SCH (02:17)
[2022-11-28 04:00] VITALS: BP 119/55
--- NOTE | 2022-11-28 04:00 | NUR ---
MORNING CARE WAS DONE TO PT. CHANGED CHUCKS, LINENS AND GOWN. NO S/S OF RESPIRATORY DISTRESS NOTED. ALL SAFETY MEASURES IMPLEMENTED. BED IN LOW POSITION, BED WHEELS ON LOCK AND CALL LIGHT WITHIN REACH.
[2022-11-28] MEDS: NACL 0.9% 1,000 ML IV SCH (06:09)
[2022-11-28 06:50] LABS: BASOPHILS % (AUTO) 0.7 % (0.0-2.0); EOSINOPHILS # (AUTO) 0.1 K/uL (0-0.4); EOSINOPHILS % (AUTO) 2.2 % (0.0-4.0); HEMATOCRIT 36.7 % (36-48); HEMOGLOBIN 11.8 g/dL (12.0-16.0); LYMPHOCYTES # (AUTO) 1.4 K/uL (2.5-16.5); LYMPHOCYTES % (AUTO) 36.1 % (20.5-51.1); MEAN CORPUSCULAR HEMOGLOBIN 31 pg (27-31); MEAN CORPUSCULAR HGB CONC 32 g/dL (33-37); MEAN CORPUSCULAR VOLUME 96.5 fL (80-94); MONOCYTES # (AUTO) 0.6 K/uL (0.8-1.0); MONOCYTES % (AUTO) 16.1 % (1.7-9.3); NEUTROPHILS # (AUTO) 1.8 K/uL (1.8-7.7); NEUTROPHILS % (AUTO) 44.9 % (42.2-75.2); PLATELET COUNT (AUTO) 226 K/uL (140-450); RED CELL DISTRIBUTION WIDTH 15.4 % (11.6-13.7); WHITE BLOOD COUNT (AUTO) 3.9 K/uL (4.8-10.8)
--- NOTE | 2022-11-28 07:30 | NUR ---
PT IS STABLE. ENDORSED PT FROM THE MORNING SHIFT NURSE FOR THE CONTINUITY OF CARE.
[2022-11-28 08:00] VITALS: BP 126/58
--- NOTE | 2022-11-28 08:17 | NUR ---
DC PLANNING ASSESSMENT COMPLETE SEE ASSESSMENT FOR DETAILS [facility] TENTATIVE DC PLAN IS FOR PT TO RETURN TO [facility], ONCE MEDICALLY STABLE. Addendum: 12/01/22 at 0820 by Giorgio ZABALA Amended: Links added.
--- NOTE | 2022-11-28 08:23 | NUR ---
11/28/2022 0710: RECEIVED PT FROM ANUM ADAMS. PT RESTING IN BED NO SOB, GUSRDING OR GRIMACING . NO ACUTE DISTRESS NOTED AT THIS TIME. [id number].
[2022-11-28 08:45] LABS: ANION GAP 10.5 (8-16); CREATININE 0.6 mg/dL (0.6-1.3); POTASSIUM 4.5 mmol/L (3.5-5.1)
[2022-11-28 08:50] LABS: PHOSPHORUS 3.7 mg/dL (2.5-4.9)
[2022-11-28] MEDS: METOCLOPRAMIDE 10 MG/10 ML SYRP UDC GT SCH ×2 (09:00→10:00)
[2022-11-28] MEDS ORDERED: NON-FORMULARY ITEM (Famotidine* (Pepcid*) 40 MG) GT SCH (09:00)
[2022-11-28] MEDS: PANTOPRAZOLE 40 MG INJ VIAL IVP SCH (09:00)
[2022-11-28] MEDS ORDERED: NON-FORMULARY ITEM (Esomeprazole Magnesium* (Nexium*) 40 MG) GT SCH (09:00)
[2022-11-28] MEDS: DOCUSATE 100 MG/10 ML UDC GT SCH ×2 (09:48→20:39)
[2022-11-28] MEDS: TAMSULOSIN 0.4 MG CAP GT SCH (09:48)
[2022-11-28] MEDS: LACTULOSE 20 GM/30 ML UDC GT SCH ×2 (09:50→20:38)
[2022-11-28] MEDS: LACTOBACILLUS RHAMNOSUS GG 1 EACH CAP GT SCH (09:54)
[2022-11-28] MEDS: FERROUS SULFATE 300 MG/5 ML UDC GT SCH (09:58)
[2022-11-28] MEDS: POLYETHYLENE GLYCOL 17 GM/PKT GT SCH (09:59)
[2022-11-28] MEDS: ASCORBIC ACID 500 MG TAB GT SCH (10:01)
[2022-11-28 16:00] VITALS: BP 107/58
--- NOTE | 2022-11-28 16:30 | NUR ---
Received patient from Marcio
[2022-11-28 20:00] VITALS: BP 102/59
--- NOTE | 2022-11-28 20:00 | NUR ---
RECEIVED PT FROM NURSE FOR CONTINUITY OF CARE.PT IS STABLE
[2022-11-29] MEDS: LEVOFLOXACIN 500 MG/D5W PREMIX 100 ML IV SCH (03:10)
[2022-11-29 04:00] VITALS: BP 100/55
--- NOTE | 2022-11-29 07:10 | NUR ---
RECEIVED REPORT FROM NIGHTSMEFT NURSE FLORES FOR CONTINUITY OF CARE. PT IN STABLE CONDITION. NO SIGNS OF PAIN OR DISTRESS NOTED AT THIS TIME.
[2022-11-29 07:18] LABS: ANION GAP 11.4 (8-16); CREATININE 0.7 mg/dL (0.6-1.3); POTASSIUM 4.4 mmol/L (3.5-5.1)
[2022-11-29 07:34] LABS: PHOSPHORUS 3.8 mg/dL (2.5-4.9)
[2022-11-29 08:00] VITALS: BP 94/48
[2022-11-29 08:10] LABS: BASOPHILS % (AUTO) 0.9 % (0.0-2.0); EOSINOPHILS # (AUTO) 0.1 K/uL (0-0.4); EOSINOPHILS % (AUTO) 2.2 % (0.0-4.0); HEMATOCRIT 38.6 % (36-48); HEMOGLOBIN 12.3 g/dL (12.0-16.0); LYMPHOCYTES # (AUTO) 1.7 K/uL (2.5-16.5); LYMPHOCYTES % (AUTO) 35.4 % (20.5-51.1); MEAN CORPUSCULAR HEMOGLOBIN 31 pg (27-31); MEAN CORPUSCULAR HGB CONC 32 g/dL (33-37); MEAN CORPUSCULAR VOLUME 96.1 fL (80-94); MONOCYTES # (AUTO) 0.7 K/uL (0.8-1.0); MONOCYTES % (AUTO) 13.9 % (1.7-9.3); NEUTROPHILS # (AUTO) 2.3 K/uL (1.8-7.7); NEUTROPHILS % (AUTO) 47.6 % (42.2-75.2); PLATELET COUNT (AUTO) 230 K/uL (140-450); RED BLOOD CELL COUNT(AUTO) 4.01 MIL/uL (4.20-5.40); RED CELL DISTRIBUTION WIDTH 15.1 % (11.6-13.7); WHITE BLOOD COUNT (AUTO) 4.9 K/uL (4.8-10.8)
[2022-11-29] MEDS: ASCORBIC ACID 500 MG TAB GT SCH (09:43)
[2022-11-29] MEDS: TAMSULOSIN 0.4 MG CAP GT SCH (09:44)
[2022-11-29] MEDS: LACTOBACILLUS RHAMNOSUS GG 1 EACH CAP GT SCH (09:45)
[2022-11-29] MEDS: METOCLOPRAMIDE 10 MG/10 ML SYRP UDC GT SCH ×3 (09:46→17:34)
[2022-11-29] MEDS: FERROUS SULFATE 300 MG/5 ML UDC GT SCH (09:46)
[2022-11-29] MEDS: LACTULOSE 20 GM/30 ML UDC GT SCH ×2 (09:47→20:43)
[2022-11-29] MEDS: DOCUSATE 100 MG/10 ML UDC GT SCH ×2 (09:47→20:43)
[2022-11-29] MEDS: POLYETHYLENE GLYCOL 17 GM/PKT GT SCH (09:48)
[2022-11-29] MEDS: PANTOPRAZOLE 40 MG INJ VIAL IVP SCH (09:50)
--- NOTE | 2022-11-29 11:27 | NUR ---
[facility] CALLED FOR UPDATE ON PT.
--- NOTE | 2022-11-29 11:50 | NUR ---
NOTIFIED DR. GARCIA OF POSITIVE YEAST RESULT IN URINE CULTURE. DIFLUCAN ORDERED.
[2022-11-29] MEDS: FLUCONAZOLE 100 MG/NS PREMIX 50 ML IV SCH (12:00)
--- NOTE | 2022-11-29 13:53 | NUR ---
RESIDUAL 30ML. ADMINISTERED SCHEDULED REGLAN AND FLUSHED WITH 30ML WATER, CONTINUED FEEDING.
[2022-11-29 16:00] VITALS: BP 116/55
--- NOTE | 2022-11-29 17:00 | NUR ---
NO RESIDUAL NOTED.
--- NOTE | 2022-11-29 19:19 | NUR ---
ENDORSED PT TO NIGHTSHIFT NURSE PHYLLIS FOR CONTINUITY OF CARE. PT IN STABLE CONDITION.
--- NOTE | 2022-11-29 19:20 | NUR ---
RECEIVED PATIENT LYING ON THE BED, HOB ELEVATED FOR ASPIRATION PRECAUTION, JEVITY 1.2 TIMOTEO RUNNING @50ML/HR. NO SIGNS OF DISTRESS NOTED, NO SIGNS OF PAIN NOTED, ALL SAFETY MEASURES IN PLACE. WILL CONTINUE TO MONITOR THE PATIENT.
[2022-11-29 20:00] VITALS: BP 114/91
--- NOTE | 2022-11-29 20:45 | NUR ---
SCHEDULED MEDICATIONS GIVEN ORDERED, RESIDUAL CHECK 10CC.
--- NOTE | 2022-11-30 00:40 | NUR ---
CHECKED ON PATIENT, IS SLEEPING, NO SIGNS OF DISTRESS NOTED, BREATHING EVEN AND NON LABORED, NO SIGNS OF PAIN/DISCOMFORT NOTED. ALL SAFETY MEASURES IN PLACE.
[2022-11-30] MEDS: LEVOFLOXACIN 500 MG/D5W PREMIX 100 ML IV SCH (02:14)
--- NOTE | 2022-11-30 02:15 | NUR ---
SCHEDULED IV ANTIBIOTIC GIVEN ORDERED.
[2022-11-30 04:00] VITALS: BP 124/48
--- NOTE | 2022-11-30 04:30 | NUR ---
BEDSIDE CARE DONE, MOUTH CARE DONE. NO SIGNS OF DISTRESS NOTED, NO SIGNS OF PAIN NOTED. JEVITY RUNNING @ 50ML/HR GIVEN VIA [employer]. ALL SAFETY MEASURES IN PLACE.
[2022-11-30 07:25] LABS: ANION GAP 11.8 (8-16); CARBON DIOXIDE 29.7 mmol/L (21-32); CREATININE 0.6 mg/dL (0.6-1.3); POTASSIUM 4.5 mmol/L (3.5-5.1)
[2022-11-30 07:29] LABS: BASOPHILS % (AUTO) 0.8 % (0.0-2.0); EOSINOPHILS # (AUTO) 0.1 K/uL (0-0.4); EOSINOPHILS % (AUTO) 2.4 % (0.0-4.0); HEMATOCRIT 36.4 % (36-48); HEMOGLOBIN 11.9 g/dL (12.0-16.0); LYMPHOCYTES # (AUTO) 1.4 K/uL (2.5-16.5); LYMPHOCYTES % (AUTO) 33.9 % (20.5-51.1); MEAN CORPUSCULAR HEMOGLOBIN 31 pg (27-31); MEAN CORPUSCULAR HGB CONC 33 g/dL (33-37); MEAN CORPUSCULAR VOLUME 93.9 fL (80-94); MONOCYTES # (AUTO) 0.6 K/uL (0.8-1.0); MONOCYTES % (AUTO) 14.2 % (1.7-9.3); NEUTROPHILS % (AUTO) 48.7 % (42.2-75.2); PLATELET COUNT (AUTO) 252 K/uL (140-450); RED BLOOD CELL COUNT(AUTO) 3.88 MIL/uL (4.20-5.40); RED CELL DISTRIBUTION WIDTH 14.9 % (11.6-13.7); WHITE BLOOD COUNT (AUTO) 4.1 K/uL (4.8-10.8)
--- NOTE | 2022-11-30 07:31 | NUR ---
ENDORSED PATIENT TO DAY NURSE FOR CONTINUITY OF CARE. NEEDS MET THROUGHOUT THE SHIFT, PATIENT IN STABLE CONDITION.
--- NOTE | 2022-11-30 07:32 | NUR ---
RECEIVED PT FROM FELT CUTTER NURSE FOR CONTINUITY OF CARE. PT IN BED WITH EYES CLOSED. VISIBLE CHEST RISE/FALL. RESPIRATIONS EVEN AND UNLABORED ON RA. SKIN WARM AND DRY TO TOUCH. IV ON L F/A 22G SL. ALL SAFETY PRECAUTIONS IN PLACE.
[2022-11-30 07:41] LABS: MAGNESIUM 1.8 mg/dL (1.8-2.4); PHOSPHORUS 3.6 mg/dL (2.5-4.9)
[2022-11-30 08:00] VITALS: BP 102/51
--- NOTE | 2022-11-30 08:00 | NUR ---
Patient's Plan of Care was discussed and reviewed with MANAGER UTILITIES:
[2022-11-30] MEDS: PANTOPRAZOLE 40 MG INJ VIAL IVP SCH (09:00)
[2022-11-30] MEDS: TAMSULOSIN 0.4 MG CAP GT SCH (09:51)
[2022-11-30] MEDS: LACTULOSE 20 GM/30 ML UDC GT SCH ×2 (09:52→21:11)
[2022-11-30] MEDS: DOCUSATE 100 MG/10 ML UDC GT SCH ×2 (09:52→21:11)
[2022-11-30] MEDS: FERROUS SULFATE 300 MG/5 ML UDC GT SCH (09:53)
[2022-11-30] MEDS: LACTOBACILLUS RHAMNOSUS GG 1 EACH CAP GT SCH (09:53)
--- NOTE | 2022-11-30 09:53 | NUR ---
ADMINISTERED ALL SCHEDULED MEDS. NOTED 7CCS OF RESIDUAL. PT TOLERATING WELL.
[2022-11-30] MEDS: METOCLOPRAMIDE 10 MG/10 ML SYRP UDC GT SCH ×3 (09:54→16:50)
[2022-11-30] MEDS: POLYETHYLENE GLYCOL 17 GM/PKT GT SCH (09:54)
[2022-11-30] MEDS: ASCORBIC ACID 500 MG TAB GT SCH (09:55)
[2022-11-30] MEDS: FLUCONAZOLE 100 MG/NS PREMIX 50 ML IV SCH (12:52)
--- NOTE | 2022-11-30 12:53 | NUR ---
IV MEDICATION ADMINISTERED BY ANGIE CARLOS.
--- NOTE | 2022-11-30 15:57 | NUR ---
11/30/22 RD FOLLOW UP COMPLETED. PLEASE REFER TO NUTRITION ASSESSMENT UNDER CARE ACTIVITY FOR ESTIMATED NUTRITIONAL NEEDS. 1. CONTINUE WITH JEVITY 1.2 @ 50ML/HR PT TOLERATES, FWF 200 ML Q6H PER MD - PROVIDES 1200 ML TOTAL VOLUME, 1440 KCAL, 67 GM PROTEIN AND 968.4 ML FREE WATER DAILY MEETING 96% ESTIMATED KCAL AND 89% PROTEIN NEEDS; ADEQUATE 2. MONITOR GASTRIC RESIDUALS AND NUTRITION RELATED LAB VALUES 3. RD TO FOLLOW-UP 2-3 DAYS, HIGH RISK MARK CASTILLO RD
[2022-11-30 16:00] VITALS: BP 110/55
--- NOTE | 2022-11-30 16:51 | NUR ---
ADMINISTERED SCHEDULED MED. PT TOLERATING WELL.
--- NOTE | 2022-11-30 19:19 | NUR ---
ENDORSED PT TO CLEANER AND POLISHER NURSE FOR CONTINUITY OF CARE. PT IN STABLE CONDITION.
--- NOTE | 2022-11-30 19:20 | NUR ---
RECEIVED PATIENT LYING ON THE BED, NO SIGNS OF PAIN, NO SIGNS OF DISTRESS NOTED. HOB ELEVATED, JEVITY RUNNING GIVEN VIA [employer]. ALL SAFETY MEASURES MAINTAINED.
[2022-11-30 20:00] VITALS: BP 95/59
--- NOTE | 2022-11-30 21:12 | NUR ---
SCHEDULED MEDICATIONS GIVEN ORDERED
--- NOTE | 2022-11-30 22:27 | NUR ---
BEDSIDE CARE DONE, NO SIGNS OF PAIN/DISCOMFORT NOTED, NO SIGNS OF DISTRESS NOTED. ALL SAFETY MEASURES MAINTAINED.
--- NOTE | 2022-12-01 00:40 | NUR ---
NEW TUBE FEEDING HANG. HOB ELEVATED FOR ASPIRATION PRECAUTIONS. WILL CONTINUE TO MONITOR THE PATIENT.
[2022-12-01] MEDS: LEVOFLOXACIN 500 MG/D5W PREMIX 100 ML IV SCH (02:57)
[2022-12-01 04:00] VITALS: BP 113/57
--- NOTE | 2022-12-01 04:30 | NUR ---
BEDSIDE CARE DONE, MOUTH CARE DONE. BED IN LOW AND LOCKED POSITION.
--- NOTE | 2022-12-01 07:00 | NUR ---
ENDORSED TO DAY NURSE FOR CONTINUITY OF CARE. NEEDS MET THROUGHOUT THE SHIFT. PATIENT IN STABLE CONDITION.
--- NOTE | 2022-12-01 07:01 | NUR ---
RECEIVED PT FROM MOUNTING MACHINE OPERATOR NURSE. PT IN BED WITH EYES CLOSED. VISIBLE CHEST RISE/FALL. RESPIRATIONS EVEN AND UNLABORED ON RA. IV ON LEFT HAND 24G SL. TUBE FEEDING RUNNING JEVITY. ALL SAFETY PRECAUTIONS IN PLACE.
[2022-12-01 08:00] VITALS: BP 96/48
--- NOTE | 2022-12-01 08:00 | NUR ---
Patient's Plan of Care was discussed and reviewed with COMMUNITY SERVICE WORKER:
[2022-12-01] MEDS: PANTOPRAZOLE 40 MG INJ VIAL IVP SCH (09:00)
[2022-12-01] MEDS: ASCORBIC ACID 500 MG TAB GT SCH (09:18)
[2022-12-01] MEDS: TAMSULOSIN 0.4 MG CAP GT SCH (09:18)
[2022-12-01] MEDS: LACTOBACILLUS RHAMNOSUS GG 1 EACH CAP GT SCH (09:18)
[2022-12-01] MEDS: DOCUSATE 100 MG/10 ML UDC GT SCH (09:19)
[2022-12-01] MEDS: METOCLOPRAMIDE 10 MG/10 ML SYRP UDC GT SCH ×3 (09:19→16:07)
[2022-12-01] MEDS: FERROUS SULFATE 300 MG/5 ML UDC GT SCH (09:20)
[2022-12-01] MEDS: LACTULOSE 20 GM/30 ML UDC GT SCH (09:20)
[2022-12-01] MEDS: POLYETHYLENE GLYCOL 17 GM/PKT GT SCH (09:21)
--- NOTE | 2022-12-01 09:25 | NUR ---
NO RESIDUAL NOTED ON G TUBE, ADMINISTERED ALL SCHEDULED MEDS. PT TOLERATING WELL.
[2022-12-01] MEDS ORDERED: LEVO750T75 PO (11:36)
[2022-12-01] MEDS ORDERED: FLUC200T PO (11:36)
[2022-12-01] MEDS: FLUCONAZOLE 100 MG/NS PREMIX 50 ML IV SCH (12:05)
--- NOTE | 2022-12-01 13:10 | NUR ---
NO RESIDUAL NOTED. ADMINISTERED SCHEDULED MED.
--- NOTE | 2022-12-01 13:19 | NUR ---
DC PLANNING: RECEIVED ORDER FOR SNF PLACEMENT FOR REHAB. [facility] INFORMED. PER [facility], THEY ARE ABLE TO MANAGE G TUBE ABX AND CAN PROVIDE PT 3X/WK. [facility] ALSO STATED THAT THEY ARE ABLE TO CLIENT APPLICATION SUPPORT ENGINEER PATIENT ONCE READY. DR. CRAFT MADE AWARE. Addendum: 12/01/22 at 1422 by Sadia Jc CM PER [facility] OF [facility], TO CALL [facility] [phone]. PER [facility], THERE FAX NUMBER IS [phone]. REFERRAL AND ORDER FOR PT SENT. Addendum: 12/01/22 at 1716 by Sadia Jc CM PER [facility], THEY ARE ABLE TO ACCEPT PATIENT AND START OF SERVICE WILL BE TOMORROW.
--- NOTE | 2022-12-01 15:52 | NUR ---
CALLED [facility]. GAVE REPORT TO CLEVE.
[2022-12-01 16:00] VITALS: BP 98/54
--- NOTE | 2022-12-01 16:08 | NUR ---
ADMINISTERED SCHEDULED MEDICATION. PT TOLERATING WELL.
--- NOTE | 2022-12-01 17:41 | NUR ---
CALLED CLEVE AT [facility] [phone] REGARDING SCHEDULED PICKUP FROM 430-5PM. STATES THEY ARE RUNNING BEHIND AND HAVE RESCHEDULED PICKUP AT 830PM TONIGHT.
--- NOTE | 2022-12-01 19:29 | NUR ---
ENDORSED PT TO SKY LINE YARDER NURSE FOR CONTINUITY OF CARE. ENDORSED CHARGE ACCOUNT CLERK TIME 0830PM MARICEL.
--- NOTE | 2022-12-01 19:30 | NUR ---
RECEIVED REPORT FROM DARYL GILLESPIE, PATIENT WAS STABLE DURING CHANGE OF SHIFT. PATIENT IN BED UNABLE TO SPOKE OR COMMUNICATE. PATIENT IS TO DISCHARGE AT [facility] BY 2029. ALL IV AND FEEDING WAS DISCONNECTED BECAUSE THE ORIGINAL DISCHARGE WAS SCHEDULED FOR 1700. NO NOTED S/S OF PAIN/DISCOMFORT NO NOTED S/S OF RESPIRATORY DISTRESS. NO NOTED OPEN WOUNDS TO PATIENT BODY. PATIENT HAS A DIAPER AND WAS KEPT CLEAN AND DRY AT THIS TIME. [email or web address]
--- NOTE | 2022-12-01 20:00 | NUR ---
VETERINARIAN ASSISTANT CALLED CLEVE AT [facility] TO CONFIRM TIME OR ARRIVAL FOR PATIENT TO DISCHARGE. IT WAS REPORTED THAT PATIENT WOULD LEAVE BY 2029. [email or web address]
--- NOTE | 2022-12-01 21:30 | NUR ---
PATIENT WAS CHANGED AND KEPT DRY. BOWEL MOVEMENT AND URINE. PAPERWORK WAS GIVEN TO [facility] TECHS X 2 ON A GURNEY. NO NOTED S/S OF PAIN/DISCOMFORT. NO NOTED RESPIRATORY DISTRESS. ALL BELONGING WERE GIVEN TO THE [facility] TECHNS TO RETURN TO [facility]. [email or web address]
== END 2022-12-01 21:30 | disposition home or self-care (01) | DRG 871 ==
LOC: MED 23:07 → MMU 11-27 02:12 → MTU 11-27 03:05
DX: A41.9 Sepsis, unspecified organism (principal); J18.9 Pneumonia, unspecified organism; N39.0 Urinary tract infection, site not specified; E87.0 Hyperosmolality and hypernatremia; E44.0 Moderate protein-calorie malnutrition; Z20.822 Contact with and (suspected) exposure to COVID-19; R13.10 Dysphagia, unspecified; G80.9 Cerebral palsy, unspecified; Z88.0 Allergy status to penicillin; Z88.8 Allergy status to other drugs, medicaments and biological substances; Z79.899 Other long term (current) drug therapy; Z93.1 Gastrostomy status; Z79.1 Long term (current) use of non-steroidal anti-inflammatories (NSAID); Z68.21 Body mass index [BMI] 21.0-21.9, adult
CPT/HCPCS: 36415; 71045; 80048; 80053; 81001; 82140; 82150; 83605; 83690; 83735; 83880; 84100; 84484; 85025; 85610; 85730; 87040; 87081; 87086; 96361; 96365; 99285; C9113; J1450; J1956; J8597; Q0092

== ENCOUNTER 2023-04-07 10:45 | Emergency (ER) | payer OTHER, MEDICAID ==
[~2023-04-07] VITALS: Ht 152.4 cm; Wt 54.4 kg
[~2023-04-07 10:45] MED LIST changes: +FLUC200T PO
--- NOTE | 2023-04-07 10:47 | NUR ---
PT MOVED TO BED 11 BY [facility]
[2023-04-07 10:48] VITALS: BP 120/78; PULSE 102; RESP 18; TEMP 96.6; O2SAT 95
[2023-04-07] MEDS ORDERED: MIDAZOLAM 2 MG/2 ML VIAL IM ONE (11:05)
--- NOTE | 2023-04-07 11:15 | NUR ---
PT MOVED TO BED 5 IN [facility]. ORIG BED 11
--- NOTE | 2023-04-07 11:32 | NUR ---
PT IN CT
--- NOTE | 2023-04-07 12:15 | NUR ---
62 YO F BIBA FROM [facility]. STAFF REPORT UNWITHNESSED FALL FROM WHEELCHAIR THIS AM, DENIES -LOC/SYNCOPE. SAFETY MAINTAINED.
[2023-04-07 12:36] VITALS: BP 118/76; PULSE 78; RESP 15; TEMP 98.1
--- NOTE | 2023-04-07 12:36 | NUR ---
Patient discharged with v/s stable. Written and verbal after care instructions given and explained. caregiver for Patient verbalized understanding. wheelchair use . All questions addressed prior to discharge. Advised to follow up with PMD.
[2023-04-07 13:19] VITALS: O2SAT 96
--- NOTE | 2023-04-07 13:20 | NUR ---
The patient's care was reviewed and supervised by ED Agency Nurse 7, RN, RN.
== END 2023-04-07 12:36 | disposition home or self-care (01) ==
LOC: MED 10:45
DX: R51.9 Headache, unspecified (principal); M54.2 Cervicalgia; Z88.0 Allergy status to penicillin; Z88.8 Allergy status to other drugs, medicaments and biological substances; Z79.899 Other long term (current) drug therapy; Z98.890 Other specified postprocedural states; W05.0XXA Fall from non-moving wheelchair, initial encounter; Y93.89 Activity, other specified; Y92.89 Other specified places as the place of occurrence of the external cause; Y99.8 Other external cause status
CPT/HCPCS: 70450; 72125; 96372; 99285; J2250